=== PATIENT | male | born 1935 | race Caucasian/White ===

== ENCOUNTER 2017-04-09 09:34 | Observation (INO) ==
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
[2017-04-09] MEDS ORDERED: ceFAZolin 1 GM VIAL IV ONE (10:33)
--- NOTE | 2017-04-09 10:44 | XRay Report ---
CLINICAL INFORMATION: History of tibial plateau and mid fibular fracture with possible nonunion infection COMPARISON: None. FINDINGS: Side plate and multiple screws transfix a fracture through the proximal tibial epiphysis. There is no fracture extension into the articular surface of the tibia. There is moderate resorption about the fracture line with only minimal bridging callus posteriorly. There is also an obliquely oriented fracture of the proximal fibula diaphysis with one shaft with bayoneting which is unified. Moderate patellofemoral and mild tibiofemoral degenerative changes noted. Ankle mortise is normal. Moderate diffuse soft tissue swelling noted IMPRESSION: 1. Status post ORIF oblique fracture through the proximal tibial epiphysis which demonstrates nonunion and moderate resorption about the fracture line. Superimposed infection is possible. 2. Malunified fracture of the proximal fibular diaphysis with bayoneting deformity 3. Moderate patellofemoral and mild tibiofemoral degenerative change Interpreted and Authenticated by: Gallo Diana 04/09/17
[2017-04-09 11:07] LABS: Basophils # (Auto) 0 K/mcL (0.0-0.3); Basophils % (Auto) 0.2 % (0.0-2.0); Eosinophils # (Auto) 0.2 K/mcL (0.0-0.7); Eosinophils % (Auto) 2.6 % (0.0-7.0); Granulocytes % (Auto) 75.8 % (38.0-78.0); Lymphocytes % (Auto) 10.7 % (15.5-49.0); Mean Cell Volume 99.5 fL (80.0-100.0); Mean Corpuscular HGB Conc 33.4 g/dL (31.0-36.0); Mean Corpuscular Hemoglobin 33.3 pg (26.0-34.0); Monocytes % (Auto) 10.7 % (1.0-12.0); Platelet Count 290 K/mcL (140-440); RBC 3.21 M/mcL (4.50-5.90); Red Cell Distribution Width 14.6 % (11.5-14.5)
[2017-04-09 11:25] LABS: ALT/SGPT 6 U/l (0-40); Albumin 3.6 gm/dL (3.2-5.2); Albumin/Globulin Ratio 1.1 (1.0-2.3); Alkaline Phosphatase 97 U/L (39-117); Blood Urea Nitrogen 45 mg/dl (8-23)
--- NOTE | 2017-04-09 13:37 | XRay Report ---
CLINICAL INFORMATION: Elevated sedimentation rate COMPARISON: 09/04/2016 FINDINGS: Mild cardiomegaly is unchanged. Mediastinum and pulmonary vessels are normal. There is minor bibasilar scarring, but no infiltrates or effusions. Malunified old bilateral upper rib fractures seen - as before IMPRESSION: No acute disease - stable from 09/04/2016 Interpreted and Authenticated by: Gallo Diana 04/09/17
[2017-04-09 13:44] LABS: Appearance,Urine CLEAR; Bacteria,Urine 0 /hpf (0); Bilirubin,Urine NEG (NEG); Color,Urine STRAW; Glucose,Urine (UA) NEGATIVE (NEG); Leukocyte Esterase,Urine NEG /uL (NEG); Mucus,Urine FEW /hpf (0); Nitrate,Urine NEG (NEG); Protein,Urine NEG (NEG); Urine Blood NEG mg/dL (<0.03); Urine Hyaline Cast 2 /lpf (0-2); Urine RBC < 1 /hpf (0-1); Urine Squamous Epithelial Cell 0 /hpf (0-4); Urine WBC < 1 /hpf (0-4); Urobilinogen,Urine NEG (NEG)
[2017-04-09] MEDS ORDERED: fentaNYL 100 MCG/2 ML VIAL IV ONE ×2 (13:54→18:35)
[2017-04-09] MEDS ORDERED: MIDAZOLAM 2 MG/2 ML VIAL IV ONE ×2 (13:54→18:35)
[2017-04-09] MEDS ORDERED: LIDOCAINE 1% 20 ML VIAL SQ ONE (14:21)
[2017-04-09] MEDS ORDERED: HYDROmorphone 2 MG/ML SYRINGE IV PRN (14:35)
[2017-04-09] MEDS ORDERED: SENNOSIDES 1 TABLET PO PRN (14:35)
[2017-04-09] MEDS ORDERED: ONDANSETRON 4 MG/2 ML VIAL IV PRN (14:35)
[2017-04-09] MEDS ORDERED: VANCOMYCIN PER PHARMACY IV SCH (14:35)
[2017-04-09] MEDS ORDERED: NALOXONE HCL 0.4 MG/ML VIAL IV PRN (14:35)
[2017-04-09] MEDS ORDERED: oxyCODONE HCL 5 MG TABLET PO PRN (14:35)
[2017-04-09] MEDS ORDERED: CALCITRIOL 0.25 MCG CAPSULE PO SCH (14:35)
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
[2017-04-09] MEDS: ACETAMINOPHEN 325 MG TABLET PO PRN ×2 (15:15→19:48)
--- NOTE | 2017-04-09 15:23 | Cat Scan Report ---
CLINICAL INFORMATION: Status post ORIF proximal tibial fracture approximately three months prior. Nonunion. Mild erythema in the subcutaneous soft tissues overlying the fracture site and elevated sedimentation rate. Question osteomyelitis. TECHNIQUE: 0.625 mm helical slices were obtained the distal one fourth of the femur through the mid foot. Following reconstruction, sagittal, coronal axial reformatted were processed and reviewed in soft tissue and bone windows. COMPARISON: None. FINDINGS: There is a T-shaped fracture extending across the proximal tibial metaphysis with a vertical component extending into the central tibial epiphysis through the tibial plateau cortex which shows only minimal incongruity. Sideplate and screws transfix the fracture. The distal fragment is displaced 10 mm in a lateral direction. A small amount of new periosteal bone extends across the posterior medial cortex, but nearly the entire fracture remains nonunified with moderate perifracture osseous resorption. There is no specific radiographic evidence of osteomyelitis (no Betito's abscess sequestrum etc.) Oblique fracture through the proximal fibular diaphysis shows one shaft width overlap. There is healing callus bridging this fracture fragment. Ununited fracture tip of the medial malleolus is incidentally noted. Soft tissue windows show moderate cellulitis throughout the subcutaneous pretibial region extending into the anterior lateral compartment suggesting associated myositis/fasciitis. Small effusion present patellofemoral tibiofemoral joint. Ankle mortise appears unremarkable. IMPRESSION: 1. Status post ORIF T-shaped fracture extending across the proximal tibial metaphysis with a vertical component extending the central tibial epiphysis exiting into the tibial plateau which shows minimal incongruity.. There is only minimal focal new periosteal bone in the posterior medial region. Most of the fracture remains nonunified. No specific radiographic evidence for osteomyelitis. 2. Moderate cellulitis throughout the anterior pretibial region with extension to the anterior and lateral compartments compatible with myositis/fasciitis. 3. Obliquely oriented displaced fracture of the proximal fibular which shows incomplete osseous union Interpreted and Authenticated by: Gallo Diana 04/09/17
[2017-04-09] MEDS: metroNIDAZOLE 500 MG/100 ML BAG IV SCH ×2 (15:36→22:50)
[2017-04-09] MEDS: 0.9 % SODIUM CHLORIDE 10 ML SYRINGE IV SCH ×3 (15:46→22:00)
[2017-04-09] MEDS: CEFEPIME 1 GM VIAL IV SCH (16:46)
[2017-04-09] MEDS ORDERED: VANCOMYCIN 1,500 MG in 0.9 % SODIUM CHLORIDE 500 ML IV ONE (17:00)
--- NOTE | 2017-04-09 19:11 | Cat Scan Report ---
CLINICAL INFORMATION: CT-guided deep bone biopsy for nonhealing comminuted fracture of the proximal tibia. Possible osteomyelitis TECHNIQUE: The procedure and risks including possibility of worsening infection and bleeding were explained the patient. He understood and wished to proceed. He was administered intravenous Versed and fentanyl in divided dosages prior to and during the procedure. Total sedation time 21 minutes. Patient maintained consciousness during the procedure. Pulse ox elevated blood pressure were monitored. Pulse oximetry and blood pressure were monitored The patient supine on the CT table, the oblique fracture line over the proximal tibia was localized in the pretibial region. Skin was marked, prepped and local anesthesia was accomplished to level of fracture with 1% lidocaine using a 25-gauge needle. A 17-gauge guide needle was then placed into the central aspect of the fracture.. Approximately 6 cc of blood was aspirated, but no purulent material. The blood was sent for Gram stain, culture and sensitivity and the needle was removed. Patient tolerated procedure well without apparent complication IMPRESSION: Successful aspiration of sagittal component of the proximal tibial fracture yielding 6 cc of hemorrhagic fluid. No evidence of purulence. Gram stain and culture pending. No apparent complication Interpreted and Authenticated by: Gallo Diana 04/09/17
[2017-04-09] MEDS: TAMSULOSIN 0.4 MG CAPSULE PO SCH (19:47)
[2017-04-09] MEDS: METOPROLOL TARTRATE 50 MG TABLET PO SCH (19:48)
[2017-04-09] MEDS: DOCUSATE SODIUM 100 MG CAPSULE PO SCH (19:48)
[2017-04-09] MEDS: FUROSEMIDE 40 MG TABLET PO SCH (19:50)
[2017-04-09] MEDS: HEPARIN 5,000 UNIT/ML VIAL SQ SCH (19:50)
[2017-04-09] MEDS ORDERED: ATORVASTATIN 20 MG TABLET PO SCH (21:00)
[2017-04-09] MEDS ORDERED: ASCORBIC ACID 500 MG TABLET PO SCH (21:00)
[2017-04-10] MEDS: ACETAMINOPHEN 325 MG TABLET PO PRN (01:39)
[2017-04-10] MEDS: 0.9 % SODIUM CHLORIDE 10 ML SYRINGE IV SCH (05:28)
[2017-04-10] MEDS: metroNIDAZOLE 500 MG/100 ML BAG IV SCH (05:30)
[2017-04-10 05:59] LABS: Basophils # (Auto) 0 K/mcL (0.0-0.3); Basophils % (Auto) 0.1 % (0.0-2.0); Eosinophils # (Auto) 0.4 K/mcL (0.0-0.7); Eosinophils % (Auto) 4.2 % (0.0-7.0); Granulocytes % (Auto) 85.3 % (38.0-78.0); Lymphocytes # (Auto) 0.5 K/mcL (1.5-4.8); Lymphocytes % (Auto) 5.6 % (15.5-49.0); Mean Cell Volume 99.5 fL (80.0-100.0); Mean Corpuscular HGB Conc 33.2 g/dL (31.0-36.0); Monocytes # (Auto) 0.4 K/mcL (0.1-0.9); Monocytes % (Auto) 4.8 % (1.0-12.0); Platelet Count 288 K/mcL (140-440); RBC 2.95 M/mcL (4.50-5.90); Red Cell Distribution Width 13.9 % (11.5-14.5)
[2017-04-10 06:16] LABS: ALT/SGPT < 5 U/l (0-40); Albumin/Globulin Ratio 0.9 (1.0-2.3); Alkaline Phosphatase 85 U/L (39-117); Bilirubin,Direct < 0.2 mg/dL (0.0-0.3); Blood Urea Nitrogen 43 mg/dl (8-23); C-Reactive Protein 20.5 mg/dl (0.0-0.8); Gamma Glutamyl Transpeptidase 14 U/L (8-61); Magnesium 1.9 mg/dL (1.6-2.5); Uric Acid 8.6 mg/dL (2.5-8.0)
[2017-04-10] MEDS ORDERED: FERROUS GLUCONATE 324 MG TABLET PO SCH (08:00)
[2017-04-10] MEDS ORDERED: FOLIC ACID 1 MG TABLET PO SCH (09:00)
[2017-04-10] MEDS ORDERED: ASPIRIN 81 MG TAB.CHEW PO SCH (09:00)
[2017-04-10] MEDS ORDERED: VIT A,C & E/LUTEIN/MINERALS TABLET PO SCH (09:00)
[2017-04-10] MEDS ORDERED: CALCIUM CARBONATE 500 MG TAB.CHEW CHEWED SCH (09:00)
[2017-04-10] MEDS ORDERED: VITAMIN E (DL,TOCOPHERYL ACET) 400 UNIT CAPSULE PO SCH (09:00)
[2017-04-10] MEDS ORDERED: TAMSULOSIN 0.4 MG CAPSULE PO SCH (09:00)
[2017-04-10] MEDS ORDERED: VITAMIN D3 1,000 UNIT TABLET PO SCH (09:00)
[2017-04-10] MEDS ORDERED: FISH OIL 1,000 MG CAPSULE PO SCH (09:00)
[2017-04-10] MEDS: HEPARIN 5,000 UNIT/ML VIAL SQ SCH (09:30)
[2017-04-10] MEDS: FUROSEMIDE 40 MG TABLET PO SCH (09:30)
[2017-04-10] MEDS: CEFEPIME 1 GM VIAL IV SCH (09:31)
[2017-04-10] MEDS: TAMSULOSIN 0.4 MG CAPSULE PO SCH (09:31)
[2017-04-10] MEDS: METOPROLOL TARTRATE 50 MG TABLET PO SCH (09:31)
[2017-04-10] MEDS: DOCUSATE SODIUM 100 MG CAPSULE PO SCH (09:31)
--- NOTE | 2017-04-10 12:38 | Orthopedic Progress Note ---
Subjective Patient information: Note initiated : 04/10/17 at 12:36 pm Service Date, if different from initiated Date: [] Patient: Hunter Munoz 81 y/o M admitted on 04/09/17 for Lt Knee Pain, Swelling /Osteomyelitis, Cellutlitis. Chief Complaint: [] Objective Vital signs: Vital Signs Temp Pulse Pulse Resp BP BP Pulse Ox 04/10/17 11:26 99.0 F H 20 155/74 90 04/10/17 07:26 97.7 F 20 158/83 96 04/10/17 03:59 98.6 F 04/10/17 03:58 97.9 F 83 22 145/70 92 04/09/17 23:36 99.3 F H 04/09/17 23:35 98.6 F 71 22 132/76 93 04/09/17 21:32 98.1 F 04/09/17 21:31 99.5 F H 81 20 157/72 94 04/09/17 19:09 97.9 F 85 22 173/68 92 04/09/17 18:15 98.4 F 86 16 145/59 98 04/09/17 18:10 98.4 F 86 86 16 145/59 154/55 98 04/09/17 18:00 98.4 F 81 16 150/62 99 04/09/17 17:55 98.4 F 86 16 154/66 97 04/09/17 17:50 98.4 F 74 16 148/55 99 04/09/17 17:45 98.4 F 74 16 148/55 99 04/09/17 17:35 98.4 F 86 84 16 155/67 155/67 98 04/09/17 14:20 98.4 F 76 16 156/84 96 04/09/17 14:17 81 18 159/63 92 04/09/17 14:16 83 22 94 04/09/17 14:12 82 24 H 152/77 98 04/09/17 14:02 82 15 152/77 92 04/09/17 13:47 79 19 163/75 93 04/09/17 13:34 84 20 169/78 94 04/09/17 12:58 76 19 90 04/09/17 12:49 73 20 158/73 94 Intake and Output 04/09/17 04/10/17 04/10/17 21:59 05:59 13:59 Intake Total 694 / 694 1300 / 1300 Output Total Balance 693 / 693 1300 / 1300 Intake: IV 100 / 100 100 / 100 Oral 594 / 594 1200 / 1200 Output: # of times incontinent of urine Other: Meal Dinner Percent of Meal Consumed 100% Feeding Ability Independent # Voids 1 1 Weight 259 lb Intake & Output: Intake & Output 04/09/17 04/10/17 04/10/17 21:59 05:59 13:59 Intake Total 694 / 694 1300 / 1300 Output Total Balance 693 / 693 1300 / 1300 Weight 259 lb Intake: IV 100 / 100 100 / 100 Oral 594 / 594 1200 / 1200 Output: # of times incontinent of urine Other: Meal Dinner Percent of Meal Consumed 100% Feeding Ability Independent # Voids 1 1 Incision: Yes clean and dry Weight bearing status: partial Neurological exam IM: Yes neurovascular intact - Labs CBC & BMP: 04/10/17 04:48 04/10/17 04:48 Labs: 04/10/17 04/09/17 04/09/17 04:48 10:25 10:05 Hgb 9.7 L TNP 10.7 L Hct 29.3 L TNP 31.9 L Assessment and Plan (1) Osteomyelitis aspiration by dr Guthrie gram stain neg will dc and await cultures patient will represent if any changes Status: Acute Qualifiers: Osteomyelitis type: unspecified type Osteomyelitis location: tibia Laterality: left Qualified Code(s): M86.9 - Osteomyelitis, unspecified
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
== END 2017-04-10 14:45 | disposition home or self-care (01) ==
LOC: MEDSUR 09:34 → ED 09:34 → MEDSUR 14:12
PROVIDERS: ADMIT Internal Medicine; ATTEND Internal Medicine

== ENCOUNTER 2022-04-19 04:06 | Inpatient (IN) ==
[2022-04-19 04:19] LABS: POC Calcium, Ionized 1.16 (1.16-1.32); POC Creatinine 4.8 (0.6-1.2)
[2022-04-19] MEDS ORDERED: FUROSEMIDE 100 MG/10 ML VIAL IV ONE (04:22)
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
--- NOTE | 2022-04-19 05:08 | XRay Report ---
INDICATION: sob TECHNIQUE: AP portable semiupright chest x-ray COMPARISON: Previous examinations dated 06/11/2019, 04/09/2017, 09/04/2016 FINDINGS: There is cardiomegaly. There are bilateral infiltrates with bibasilar predominance appearance is consistent with congestive heart failure. Bibasilar pneumonia is possible. Clinical correlation and follow-up radiographs are recommended. There is been interval worsening since previous examination IMPRESSION: [1 cardiomegaly and bilateral infiltrates consistent with congestive heart failure Interval worsening since 06/11/2019 Interpreted and Authenticated by: Gallo Webster 04/19/22
[2022-04-19 05:29] LABS: Basophils # (Auto) 0.06 K/mcL (0.00-0.30); Basophils % (Auto) 0.9 % (0.0-2.0); Eosinophils # (Auto) 0.11 K/mcL (0.00-0.70); Eosinophils % (Auto) 1.7 % (0.0-7.0); Hematocrit 31.8 % (40.1-51.0); Hemoglobin 9.5 g/dL (13.7-17.5); Lymphocytes # (Auto) 0.96 K/mcL (1.50-4.80); Lymphocytes % (Auto) 14.5 % (15.5-49.0); Mean Cell Volume 105.6 fL (80.0-100.0); Mean Corpuscular HGB Conc 29.9 g/dL (31.0-36.0); Mean Platelet Volume 9.1 fL (8.8-12.5); Monocytes # (Auto) 0.78 K/mcL (0.10-0.90); Monocytes % (Auto) 11.8 % (1.0-12.0); Neutrophils % (Auto) 70.3 % (38.0-78.0); Platelet Count 242 K/mcL (140-440); RBC 3.01 M/mcL (4.63-6.08); WBC 6.6 K/mcL (4.5-11.0)
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
[2022-04-19] MEDS ORDERED: RIVAROXABAN 15 MG TABLET PO SCH (16:00)
--- OUTSIDE RECORDS SUMMARY | 2022-04-19 16:11 | External Medical Summary | Continuity of Care Document ---
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 Lab: SHE Pimentel [address] [facility] STACE[address] S[facility] [address] Performing Lab: SHE Pimentel [address] RIVE [place] [facility] [address] URINALYS EPITHELIAL <1 0 - 4 03/22 Specimen Typ e: URINE LEW[place]ON IS CELLS.SQUA No comment en tered. [facility]) MOUS Ordering Provid er: FRANCESCO GARDUNO [PRESENCE] Report Relea sed Date/Time: Mar 16, 2021 10:12 PM IN URINE Reporting Lab: SHE Pimentel [facility] SEDIMENT [address] [facility] SON[facility] [address] BY LIGHT Performing Lab : SHE Pimentel [facility] MICROSCOPY [facility]INWRCAMP[facility]LL[facility] SONYA [facility] [address] URINALYS HEMOGLOBIN NEGATIVE 03/22 Specimen Ty pe: URINE LEWISTON IS [PRESENCE] No comment en tered. [facility] ([facility]) IN URINE Ordering Provi kailey: FRANCESCO GARDUNO BY TEST Report Released Date/Time: Mar 16, 2021 10:12 PM STRIP Reporting Lab: SHE Pimentel [address] [place] [facility] [address] Performing Lab: SHE Pimentel [address] [place] [facility] [address] URINALYS NITRITE NEGATIVE 03/22 Specimen Type: URINE LEWISTON IS [PRESENCE] No comment en tered. [facility] ([facility]) IN URINE Ordering Provi kailey: FRANCESCO GARDUNO BY TEST Report Released Date/Time: Mar 16, 2021 10:12 PM STRIP Reporting Lab: SHE Pimentel [address] [place] [address] Performing Lab: SHE Pimentel [address] [place] [facility] [address] URINALYS LEUKOCYTE NEGATIVE 03/22 Specimen Typ e: URINE LEWISTON IS No comment ente red. [facility] ([facility]) [PRESENCE] Ordering Pro vider: FRANCESCO GARDUNO IN URINE Report Release d Date/Time: Mar 16, 2021 10:12 PM BY TEST Reporting Lab: SHE Pimentel [address] [place] [facility] [address] Performing Lab: SHE Pimentel [address] STACEYE S[facility] [address] URINALYS UROBILINOG NORMAL <2 - 2 03/22 Specimen Typ e: URINE LEW[place] IS No comment enter ed. [facility] ([facility]) [MASS/VOLU Ordering Pro vider: FRANCESCO GARDUNO ME] IN Report Released Date/Time: Mar 16, 2021 10:12 PM URINE BY Reporting Lab: SHE Pimentel [facility] TEST STRIP [address] [place] [address] Performing Lab: SHE Pimentel [facility] [address] [place] [address] COMPREHE GLUCOSE 102 71 - 109 03/22 Specimen Type: SERUM LEWISTON NSIVE [MASS/VOLU /2020 Comment: Hig h doses of Biotin supplements (>5 mg/day) may falsely increase Vitamin B-12, Vitamin D (25OH), Free T4, and Folate results. Test specimens should be collected at least 8 hrs after [facility] METABOLI [place]] IN st ingestion of high dose biotin. High doses of Biotin supplements (>5 mg/day) may falsely decrease Total PSA, Free PSA, Pro-BNP, AFP, C-Peptide and Ferritin results. Test specimens should be col C PANEL SERUM OR lected at least 8 hours after the last ingestion of high dose biotin. CAUTION REGARDING BNP, NT-PRO: This is an N-Terminal ProBNP assay. While hvf-I-Dupfxebn BNP assays have roughly the same predictive PLASMA power for access ing heart failure, reference ranges are different and results obtained between the two assays cannot be used interchangeably. LDL Direct Adult Reference Range: Optimal <100 mg/dL Near optimal/abo ve optimal 100-129 mg/dL Borderline high 130-159 mg/dL High 160-189 mg/dL Very High 190 mg/dL Note that non-fasting results may be slightly lower than fasting results. Ordering Provid er: FRANCESCO GARDUNO Report Released Date/Time: Mar 16, 2021 10:12 PM Reporting Lab: SHE TanikaAddie [facility] [address] [place] [address] Performing Lab: SHE Pimentel [place] [address] [place] [address] COMPREHE UREA 46 7 - 23 03/22 H Specimen Type: SERUM LEWISTON NSIVE NITROGEN /2020 Comment: High doses of Biotin supplements (>5 mg/day) may falsely increase Vitamin B-12, Vitamin D (25OH), Free T4, and Folate results. Test specimens should be collected at least 8 hrs after [facility] METABOLI [MASS/VOLU st ingestion of high dose biotin. High doses of Biotin supplements (>5 mg/day) may falsely decrease Total PSA, Free PSA, Pro-BNP, AFP, C-Peptide and Ferritin results. Test specimens should be col C PANEL ME] IN lected at least 8 hours after the last ingestion of high dose biotin. CAUTION REGARDING BNP, NT-PRO: This is an N-Terminal ProBNP assay. While wcz-V-Glzkcptt BNP assays have roughly the same predictive SERUM OR power for acces sing heart failure, reference ranges are different and results obtained between the two assays cannot be used interchangeably. LDL Direct Adult Reference Range: Optimal <100 mg/dL PLASMA Near optimal/abo ve optimal 100-129 mg/dL Borderline high 130-159 mg/dL High 160-189 mg/dL Very High 190 mg/dL Note that non-fasting results may be slightly lower than fasting results. Ordering Provid er: FRANCESCO GARDUNO Report Released Date/Time: Mar 16, 2021 10:12 PM Reporting Lab: SHE [address] [place] [facility] [address] Performing Lab: SHE Pimentel [address] [place] [facility] [address] COMPREHE CREATININE 2.6 .7 - 1.2 11/03 H Specimen Ty pe: SERUM LEWISTON NSIVE [MASS/VOLU /2020 Comment: Hig h doses of Biotin supplements (>5 mg/day) may falsely increase Vitamin B-12, Vitamin D (25OH), Free T4, and Folate results. Test specimens should be collected at least 8 hrs after [facility] METABOLI ME] IN st ingestion of high dose biotin. High doses of Biotin supplements (>5 mg/day) may falsely decrease Total PSA, Free PSA, Pro-BNP, AFP, C-Peptide and Ferritin results. Test specimens should be col C PANEL SERUM OR lected at least 8 hours after the last ingestion of high dose biotin. CAUTION REGARDING BNP, NT-PRO: This is an N-Terminal ProBNP assay. While egg-I-Piwvfhvc BNP assays have roughly the same predictive PLASMA power for access ing heart failure, reference ranges are different and results obtained between the two assays cannot be used interchangeably. LDL Direct Adult Reference Range: Optimal <100 mg/dL Near optimal/abo ve optimal 100-129 mg/dL Borderline high 130-159 mg/dL High 160-189 mg/dL Very High 190 mg/dL Note that non-fasting results may be slightly lower than fasting results. Ordering Provid er: FRANCESCO GARDUNO Report Released Date/Time: Mar 16, 2021 10:12 PM Reporting Lab: SHE Pimentel [place] [address] [place] [address] Performing Lab: SHE Pimentel [place] [address] [place] [address] COMPREHE SODIUM 148 131 - 142 11 H Specimen Type : SERUM LEWISTON NSIVE [MOLES/VOL /2020 Comment: Hig h doses of Biotin supplements (>5 mg/day) may falsely increase Vitamin B-12, Vitamin D (25OH), Free T4, and Folate results. Test specimens should be collected at least 8 hrs after [facility] METABOLI UME] IN st ingestion of high dose biotin. High doses of Biotin supplements (>5 mg/day) may falsely decrease Total PSA, Free PSA, Pro-BNP, AFP, C-Peptide and Ferritin results. Test specimens should be col C PANEL SERUM OR lected at least 8 hours after the last ingestion of high dose biotin. CAUTION REGARDING BNP, NT-PRO: This is an N-Terminal ProBNP assay. While bkn-F-Mgbynzha BNP assays have roughly the same predictive PLASMA power for access ing heart failure, reference ranges are different and results obtained between the two assays cannot be used interchangeably. LDL Direct Adult Reference Range: Optimal <100 mg/dL Near optimal/abo ve optimal 100-129 mg/dL Borderline high 130-159 mg/dL High 160-189 mg/dL Very High 190 mg/dL Note that non-fasting results may be slightly lower than fasting results. Ordering Provid er: FRANCESCO GARDUNO Report Released Date/Time: Mar 16, 2021 10:12 PM Reporting Lab: SHE TanikaAddie [place] [address] [place] [address] Performing Lab: SHE Pimentel [address] [place] [address] COMPREHE POTASSIUM 4.8 3.6 - 5.4 03/22 Specimen Ty pe: SERUM LEWISTON NSIVE [MOLE/VOL Comment: Hig h doses of Biotin supplements (>5 mg/day) may falsely increase Vitamin B-12, Vitamin D (25OH), Free T4, and Folate results. Test specimens should be collected at least 8 hrs after [facility] UME] IN st ingestion of high dose biotin. High doses of Biotin supplements (>5 mg/day) may falsely decrease Total PSA, Free PSA, Pro-BNP, AFP, C-Peptide and Ferritin results. Test specimens should be col C PANEL SERUM OR lected at least 8 hours after the last ingestion of high dose biotin. CAUTION REGARDING BNP, NT-PRO: This is an N-Terminal ProBNP assay. While dfd-V-Irscuqfx BNP assays have roughly the same predictive PLASMA power for access ing heart failure, reference ranges are different and results obtained between the two assays cannot be used interchangeably. LDL Direct Adult Reference Range: Optimal <100 mg/dL Near optimal/abo ve optimal 100-129 mg/dL Borderline high 130-159 mg/dL High 160-189 mg/dL Very High 190 mg/dL Note that non-fasting results may be slightly lower than fasting results. Ordering Provid er: FRANCESCO GARDUNO Report Released Date/Time: Mar 16, 2021 10:12 PM Reporting Lab: SHE Pimentel [address] [place] [address] Performing Lab: SHE Pimentel [address] [place] [address] COMPREHE CHLORIDE 111 95 - 108 03/22 H Specimen Type : SERUM LEWISTON NSIVE [MOLES/VOL /2020 Comment: Hig h doses of Biotin supplements (>5 mg/day) may falsely increase Vitamin B-12, Vitamin D (25OH), Free T4, and Folate results. Test [facility] IN st ingestion of high dose biotin. High doses of Biotin supplements (>5 mg/day) may falsely decrease Total PSA, Free PSA, Pro-BNP, AFP, C-Peptide and Ferritin results. Test specimens should be col C PANEL SERUM OR lected at least 8 hours after the last ingestion of high dose biotin. CAUTION REGARDING BNP, NT-PRO: This is an N-Terminal ProBNP assay. While zdu-V-Xzebedgg BNP assays have roughly the same predictive PLASMA power for access ing heart failure, reference ranges are different and results obtained between the two assays cannot be used interchangeably. LDL Direct Adult Reference Range: Optimal <100 mg/dL Near optimal/abo ve optimal 100-129 mg/dL Borderline high 130-159 mg/dL High 160-189 mg/dL Very High 190 mg/dL Note that non-fasting results may be slightly lower than fasting results. Ordering Provid er: FRANCESCO GARDUNO Report Released Date/Time: Mar 16, 2021 10:12 PM Reporting Lab: SHE DESIR [address] [place] [employer] CorporationA [facility]KA[facility] [address] Performing Lab: SHE DESIR [address] [place] [address] COMPREHE CARBON 25 21 - 32 03/22 Specimen Type: SERUM LEWIST[place] NSIVE DIOXIDE, /2020 Comment: High doses of Biotin supplements (>5 mg/day) may falsely increase Vitamin B-12, Vitamin D (25OH), Free T4, and Folate results. Test specimens should be collected at least 8 hrs after [facility] METABOLI TOTAL st ingestion of high dose biotin. High doses of Biotin supplements (>5 mg/day) may falsely decrease Total PSA, Free PSA, Pro-BNP, AFP, C-Peptide and Ferritin results. Test specimens should be col C PANEL [MOLES/VOL lected at [facility] st 8 hours after the last ingestion of high dose biotin. CAUTION REGARDING BNP, NT-PRO: This is an N-Terminal ProBNP assay. While diw-D-Kdswpwwy BNP assays have roughly the same predictive UME] IN power for access ing heart failure, reference ranges are different and results obtained between the two assays cannot be used interchangeably. LDL Direct Adult Reference Range: Optimal <100 mg/dL SERUM OR Near optimal/ab ove optimal 100-129 mg/dL Borderline high 130-159 mg/dL High 160-189 mg/dL Very High 190 mg/dL Note that non-fasting results may be slightly lower than fasting results. PLASMA Ordering Provid er: FRANCESCO GARDUNO Report Released Date/Time: Mar 16, 2021 10:12 PM Reporting Lab: SHE Pimentel [place] [address] [place] [address] Performing Lab: SHE Pimentel [place] [address] [place] [address] COMPREHE CALCIUM 8.8 8.4 - 10.5 03/22 Specimen Typ e: SERUM LEWISTON NSIVE [MASS/VOLU /2020 Comment: Hig h doses of Biotin supplements (>5 mg/day) may falsely increase Vitamin B-12, Vitamin D (25OH), Free T4, and Folate results. Test specimens should be collected at least 8 hrs after [facility] METABOLI ME] IN st ingestion of high dose biotin. High doses of Biotin supplements (>5 mg/day) may falsely decrease Total PSA, Free PSA, Pro-BNP, AFP, C-Peptide and Ferritin results. Test specimens should be col C PANEL SERUM OR lected at least 8 hours after the last ingestion of high dose biotin. CAUTION REGARDING BNP, NT-PRO: This is an N-Terminal ProBNP assay. While spl-D-Nmttvnha BNP assays have roughly the same predictive PLASMA power for access ing heart failure, reference ranges are different and results obtained between the two assays cannot be used interchangeably. LDL Direct Adult Reference Range: Optimal <100 mg/dL Near optimal/abo ve optimal 100-129 mg/dL Borderline high 130-159 mg/dL High 160-189 mg/dL Very High 190 mg/dL Note that non-fasting results may be slightly lower than fasting results. Ordering Provid er: FRANCESCO GARDUNO Report Released Date/Time: Mar 16, 2021 10:12 PM Reporting Lab: SHE Pimentel [address] [place] [address] Performing Lab: SHE TanikaAddie [place] [address] [place] [address] COMPREHE PROTEIN 6.4 5.8 - 7.9 03/22 Specimen Type : SERUM LEWIST[place] NSIVE [MASS/VOLU /2020 Comment: Hig h doses of Biotin supplements (>5 mg/day) may falsely increase Vitamin B-12, Vitamin D (25OH), Free T4, and Folate results. Test specimens should be collected at least 8 hrs after [facility]] IN ingestion of high dose biotin. High doses of Biotin supplements (>5 mg/day) may falsely decrease Total PSA, Free PSA, Pro-BNP, AFP, C-Peptide and Ferritin results. Test specimens should be col C PANEL SERUM OR lected at least 8 hours after the last ingestion of high dose biotin. CAUTION REGARDING BNP, NT-PRO: This is an N-Terminal ProBNP assay. While mvi-L-Qtnqgjqs BNP assays have roughly the same predictive PLASMA power for access ing heart failure, reference ranges are different and results obtained between the two assays cannot be used interchangeably. LDL Direct Adult Reference Range: Optimal <100 mg/dL Near optimal/abo ve optimal 100-129 mg/dL Borderline high 130-159 mg/dL High 160-189 mg/dL Very High 190 mg/dL Note that non-fasting results may be slightly lower than fasting results. Ordering Provid er: FRANCESCO GARDUNO Report Released Date/Time: Mar 16, 2021 10:12 PM Reporting Lab: SHE [address] [place] [facility] [address] Performing Lab: SHE Pimentel [address] STACEYE [facility] [facility] [address] COMPREHE ALBUMIN 4.0 3.8 - 5.2 03/22 Specimen Type : SERUM LEWIST[place] NSIVE [MASS/VOLU /2020 Comment: Hig h doses of Biotin supplements (>5 mg/day) may falsely increase Vitamin B-12, Vitamin D (25OH), Free T4, and Folate results. Test specimens should be collected at least 8 hrs after [facility]] IN ingestion of high dose biotin. High doses of Biotin supplements (>5 mg/day) may falsely decrease Total PSA, Free PSA, Pro-BNP, AFP, C-Peptide and Ferritin results. Test specimens should be col C PANEL SERUM OR lected at least 8 hours after the last ingestion of high dose biotin. CAUTION REGARDING BNP, NT-PRO: This is an N-Terminal ProBNP assay. While hlv-X-Biaknrjp BNP assays have roughly the same predictive PLASMA power for access ing heart failure, reference ranges are different and results obtained between the two assays cannot be used interchangeably. LDL Direct Adult Reference Range: Optimal <100 mg/dL Near optimal/abo ve optimal 100-129 mg/dL Borderline high 130-159 mg/dL High 160-189 mg/dL Very High 190 mg/dL Note that non-fasting results may be slightly lower than fasting results. Ordering Provid er: FRANCESCO GARDUNO Report Released Date/Time: Mar 16, 2021 10:12 PM Reporting Lab: SHE TanikaAddie [address] [place] [address] Performing Lab: SHE TanikaAddie [address] [place] [address] COMPREHE GLOBULIN 2.4 1.5 - 3.2 03/22 Specimen Typ e: SERUM LEWISTON NSIVE [MASS/VOLU /2020 Comment: Hig h doses of Biotin supplements (>5 mg/day) may falsely increase Vitamin B-12, Vitamin D (25OH), Free T4, and Folate results. Test specimens should be collected at least 8 hrs after [facility] METABOLI ME] IN st ingestion of high dose biotin. High doses of Biotin supplements (>5 mg/day) may falsely decrease Total PSA, Free PSA, Pro-BNP, AFP, C-Peptide and Ferritin results. Test specimens should be col C PANEL SERUM lected at least 8 hours after the last ingestion of high dose biotin. CAUTION REGARDING BNP, NT-PRO: This is an N-Terminal ProBNP assay. While fiy-Q-Xmhsehri BNP assays have roughly the same predictive power for access ing heart failure, reference ranges are different and results obtained between the two assays cannot be used interchangeably. LDL Direct Adult Reference Range: Optimal <100 mg/dL Near optimal/abo ve optimal 100-129 mg/dL Borderline high 130-159 mg/dL High 160-189 mg/dL Very High 190 mg/dL Note that non-fasting results may be slightly lower than fasting results. Ordering Provid er: FRANCESCO GARDUNO Report Released Date/Time: Mar 16, 2021 10:12 PM Reporting Lab: SHE TanikaAddie [address] [place] [address] Performing Lab: SHE Pimentel [address] [place] [address] COMPREHE ASPARTATE 13 14 - 44 03/22 L Specimen Type : SERUM LEWISTON NSIVE AMINOTRANS Comment: Hig h doses of Biotin supplements (>5 mg/day) may falsely increase Vitamin B-12, Vitamin D (25OH), Free T4, and Folate results. Test specimens should be collected at least 8 hrs after [facility] FERASE st ingestion of high dose biotin. High doses of Biotin supplements (>5 mg/day) may falsely decrease Total PSA, Free PSA, Pro-BNP, AFP, C-Peptide and Ferritin results. Test specimens should be col C PANEL [ENZYMATIC lected at [facility] st 8 hours after the last ingestion of high dose biotin. CAUTION REGARDING BNP, NT-PRO: This is an N-Terminal ProBNP assay. While qnf-W-Mdcebnwr BNP assays have roughly the same predictive ACTIVITY/V power for acc essing heart failure, reference ranges are different and results obtained between the two assays cannot be used interchangeably. LDL Direct Adult Reference Range: Optimal <100 mg/dL OLUME] IN Near optimal/a vidal optimal 100-129 mg/dL Borderline high 130-159 mg/dL High 160-189 mg/dL Very High 190 mg/dL Note that non-fasting results may be slightly lower than fasting results. SERUM OR Ordering Provi kailey: FRANCESCO GARDUNO PLASMA Report Released Date/Time: Mar 16, 2021 10:12 PM Reporting Lab: SHE Pimentel [address] [place] [facility] [address] Performing Lab: SHE Pimentel [address] [place] [address] COMPREHE ALANINE <10 9 - 57 03/22 Specimen Type: SERUM DAVID NSIVE AMINOTRANS Comment: Hig h doses of Biotin supplements (>5 mg/day) may falsely increase Vitamin B-12, Vitamin D (25OH), Free T4, and Folate results. Test specimens should be collected at least 8 hrs after [facility] FERASE st ingestion of high dose biotin. High doses of Biotin supplements (>5 mg/day) may falsely decrease Total PSA, Free PSA, Pro-BNP, AFP, C-Peptide and Ferritin results. Test specimens should be col C PANEL [ENZYMATIC lected at [facility]i st 8 hours after the last ingestion of high dose biotin. CAUTION REGARDING BNP, NT-PRO: This is an N-Terminal ProBNP assay. While zji-R-Pobagvvi BNP assays have roughly the same predictive ACTIVITY/V power for acc essing heart failure, reference ranges are different and results obtained between the two assays cannot be used interchangeably. LDL Direct Adult Reference Range: Optimal <100 mg/dL OLUME] IN Near optimal/a vidal optimal 100-129 mg/dL Borderline high 130-159 mg/dL High 160-189 mg/dL Very High 190 mg/dL Note that non-fasting results may be slightly lower than fasting results. SERUM OR Ordering Provi kailey: FRANCESCO GARDUNO PLASMA Report Released Date/Time: Mar 16, 2021 10:12 PM Reporting Lab: SHE Pimentel [address] [place] [address] Performing Lab: SHE Pimentel [address] [place] [address] COMPREHE ALKALINE 130 45 - 129 11/03 H Specimen Type : SERUM [place] NSIVE PHOSPHATAS /2020 Comment: Hig h doses of Biotin supplements (>5 mg/day) may falsely increase Vitamin B-12, Vitamin D (25OH), Free T4, and Folate results. Test specimens should be collected at least 8 hrs after [facility] METABOLI E st ingestion of high dose biotin. High doses of Biotin supplements (>5 mg/day) may falsely decrease Total PSA, Free PSA, Pro-BNP, AFP, C-Peptide and Ferritin results. Test specimens should be col C PANEL [ENZYMATIC lected at nani [facility] 8 hours after the last ingestion of high dose biotin. CAUTION REGARDING BNP, NT-PRO: This is an N-Terminal ProBNP assay. While edx-W-Wombhjje BNP assays have roughly the same predictive ACTIVITY/V power for acc essing heart failure, reference ranges are different and results obtained between the two assays cannot be used interchangeably. LDL Direct Adult Reference Range: Optimal <100 mg/dL OLUME] IN Near optimal/a vidal optimal 100-129 mg/dL Borderline high 130-159 mg/dL High 160-189 mg/dL Very High 190 mg/dL Note that non-fasting results may be slightly lower than fasting results. SERUM OR Ordering Provi kailey: FRANCESCO GARDUNO PLASMA Report Released Date/Time: Mar 16, 2021 10:12 PM Reporting Lab: SHE Pimentel [place] [address] [place] [address] Performing Lab: SHE Loren [address] [place] [address] COMPREHE BILIRUBIN. 0.2 0.2 - 1.3 03/22 Specimen T ype: SERUM [place] NSIVE TOTAL /2020 Comment: High d oses of Biotin supplements (>5 mg/day) may falsely increase Vitamin B-12, Vitamin D (25OH), Free T4, and Folate results. Test specimens should be collected at least 8 hrs after [facility] METABOLI [MASS/VOLU st ingestion of high dose biotin. High doses of Biotin supplements (>5 mg/day) may falsely decrease Total PSA, Free PSA, Pro-BNP, AFP, C-Peptide and Ferritin results. Test specimens should be col C PANEL ME] IN lected at least 8 hours after the last ingestion of high dose biotin. CAUTION REGARDING BNP, NT-PRO: This is an N-Terminal ProBNP assay. While rxb-T-Xvizjypf BNP assays have roughly the same predictive SERUM OR power for acces sing heart failure, reference ranges are different and results obtained between the two assays cannot be used interchangeably. LDL Direct Adult Reference Range: Optimal <100 mg/dL PLASMA Near optimal/abo ve optimal 100-129 mg/dL Borderline high 130-159 mg/dL High 160-189 mg/dL Very High 190 mg/dL Note that non-fasting results may be slightly lower than fasting results. Ordering Provid er: FRANCESCO GARDUNO Report Released Date/Time: Mar 16, 2021 10:12 PM Reporting Lab: SHE Pimentel [address] [place] [address] Performing Lab: SHE TanikaAddie [address] [place] [address] COMPREHE GLOMERULAR 23.7 60 03/22 L Specimen Typ e: SERUM [place] NSIVE FILTRATION /2020 Comment: Hig h doses of Biotin supplements (>5 mg/day) may falsely increase Vitamin B-12, Vitamin D (25OH), Free T4, and Folate results. Test specimens should be collected at least 8 hrs after [facility] METABOLI RATE/1.73 st ingestion of high dose biotin. High doses of Biotin supplements (>5 mg/day) may falsely decrease Total PSA, Free PSA, Pro-BNP, AFP, C-Peptide and Ferritin results. Test specimens should be col C PANEL SQ lected at least 8 hours after the last ingestion of high dose biotin. CAUTION REGARDING BNP, NT-PRO: This is an N-Terminal ProBNP assay. While rng-V-Dizfazcf BNP assays have roughly the same predictive M.PREDICTE power for acc essing heart failure, reference ranges are different and results obtained between the two assays cannot be used interchangeably. LDL Direct Adult Reference Range: Optimal <100 mg/dL D [VOLUME Near optimal/a vidal optimal 100-129 mg/dL Borderline high 130-159 mg/dL High 160-189 mg/dL Very High 190 mg/dL Note that non-fasting results may be slightly lower than fasting results. RATE/AREA] Ordering Pro vider: FRANCESCO GARDUNO IN SERUM Report Release d Date/Time: Mar 16, 2021 10:12 PM OR PLASMA Reporting Lab : SHE Pimentel [facility] BY [address] [place] [address] CREATININE Performing L ab: SHE Pimentel [facility] [address] [place] [phone] FORMULA (MDRD) COMPREHE ANION GAP 17 7 - 21 03/22 Specimen Type : SERUM [place] NSIVE 4 IN SERUM /2020 Comment: Hig h doses of Biotin supplements (>5 mg/day) may falsely increase Vitamin B-12, Vitamin D (25OH), Free T4, and Folate results. Test specimens should be collected at least 8 hrs after [facility] METABOLI OR PLASMA st ingestion of high dose biotin. High doses of Biotin supplements (>5 mg/day) may falsely decrease Total PSA, Free PSA, Pro-BNP, AFP, C-Peptide and Ferritin results. Test specimens should be col C PANEL lected at least 8 hours after the last ingestion of high dose biotin. CAUTION REGARDING BNP, NT-PRO: This is an N-Terminal ProBNP assay. While ina-E-Omgfyqsj BNP assays have roughly the same predictive power for access ing heart failure, reference ranges are different and results obtained between the two assays cannot be used interchangeably. LDL Direct Adult Reference Range: Optimal <100 mg/dL Near optimal/abo ve optimal 100-129 mg/dL Borderline high 130-159 mg/dL High 160-189 mg/dL Very High 190 mg/dL Note that non-fasting results may be slightly lower than fasting results. Ordering Provid er: FRANCESCO GARDUNO Report Released Date/Time: Mar 16, 2021 10:12 PM Reporting Lab: SHE [address] [facility] [address] Performing Lab: SHE FR[address] [place] [address] COMPREHE GLOMERULAR 22 90 11/03 L Specimen Typ e: SERUM [place] NSIVE Comment: Hig h doses of Biotin supplements (>5 mg/day) may falsely increase Vitamin B-12, Vitamin D (25OH), Free T4, and Folate results. Test specimens should be collected at least 8 hrs after [facility] METABOLI RATE/1.73 st ingestion of high dose biotin. High doses of Biotin supplements (>5 mg/day) may falsely decrease Total PSA, Free PSA, Pro-BNP, AFP, C-Peptide and Ferritin results. Test specimens should be col C PANEL SQ lected at least 8 hours after the last ingestion of high dose biotin. CAUTION REGARDING BNP, NT-PRO: This is an N-Terminal ProBNP assay. While cho-R-Hafpgodb BNP assays have roughly the same predictive M.PREDICTE power for acc essing heart failure, reference ranges are different and results obtained between the two assays cannot be used interchangeably. LDL Direct Adult Reference Range: Optimal <100 mg/dL D [VOLUME Near optimal/a vidal optimal 100-129 mg/dL Borderline high 130-159 mg/dL High 160-189 mg/dL Very High 190 mg/dL Note that non-fasting results may be slightly lower than fasting results. RATE/AREA] Ordering Pro vider: FRANCESCO GARDUNO IN SERUM, Report Releas ed Date/Time: Mar 16, 2021 10:12 PM PLASMA OR Reporting Lab : SHE [facility] BY [address] [place] [address] CREATININE Performing L ab: SHE Pimentel [facility] [address] [place] [address] [place] [address] FORMULA (CKD-EPI) THYROID THYROTROPI 1.22 0.300 - 03/22 Specimen Type : SERUM [place] STIMULAT N 4.25 Comment: High doses of Biotin supplements (>5 mg/day) may falsely increase Vitamin B-12, Vitamin D (25OH), Free T4, and Folate results. Test specimens should be collected at least 8 hrs after [facility] CLINIC ING [UNITS/VOL st ingestion of high dose biotin. High doses of Biotin supplements (>5 mg/day) may falsely decrease Total PSA, Free PSA, Pro-BNP, AFP, C-Peptide and Ferritin results. Test specimens should be col HORMONE UME] IN lected at least 8 hours after the last ingestion of high dose biotin. CAUTION REGARDING BNP, NT-PRO: This is an N-Terminal ProBNP assay. While bew-L-Gfbltbox BNP assays have roughly the same predictive SERUM OR power for acces sing heart failure, reference ranges are different and results obtained between the two assays cannot be used interchangeably. LDL Direct Adult Reference Range: Optimal <100 mg/dL PLASMA Near optimal/abo ve optimal 100-129 mg/dL Borderline high 130-159 mg/dL High 160-189 mg/dL Very High 190 mg/dL Note that non-fasting results may be slightly lower than fasting results. Ordering Provid er: FRANCESCO GARDUNO Report Released Date/Time: Mar 16, 2021 10:12 PM Reporting Lab: SHE Pimentel [address] [place] [address] Performing Lab: SHE Pimentel [address] [facility] [address] VITAMIN COBALAMIN 320 232 - 1245 03/22 Specimen Ty pe: SERUM [place] B-12 (VITAMIN /2020 Comment: High doses of Biotin supplements (>5 mg/day) may falsely increase Vitamin B-12, Vitamin D (25OH), Free T4, and Folate results. Test specimens should be collected at least 8 hrs after last ingestion of high dose biotin. [facility] B12) Ordering Provid er: FRANCESCO GARDUNO [MASS/VOLU Report Relea sed Date/Time: Mar 16, 2021 10:12 PM ME] IN Reporting Lab: SHE TanikaAddie [facility] SERUM OR [address] [place] [address] PLASMA Performing Lab: SHE Loren [place] [address] [place] [address] LIPID CHOLESTERO 144 <199 - 199 03/22 Specimen T ype: SERUM [place] PANEL L Comment: High d oses of Biotin supplements (>5 mg/day) may falsely increase Vitamin B-12, Vitamin D (25OH), Free T4, and Folate results. Test specimens should be collected at least 8 hrs after [facility] [place] [facility] [MASS/VOLU st ingestion of high dose biotin. High doses of Biotin supplements (>5 mg/day) may falsely decrease Total PSA, Free PSA, Pro-BNP, AFP, C-Peptide and Ferritin results. Test specimens should be col ME] IN lected at least 8 hours after the last ingestion of high dose biotin. CAUTION REGARDING BNP, NT-PRO: This is an N-Terminal ProBNP assay. While cao-U-Elfxehut BNP assays have roughly the same predictive SERUM OR power for acces sing heart failure, reference ranges are different and results obtained between the two assays cannot be used interchangeably. LDL Direct Adult Reference Range: Optimal <100 mg/dL PLASMA Near optimal/abo ve optimal 100-129 mg/dL Borderline high 130-159 mg/dL High 160-189 mg/dL Very High 190 mg/dL Note that non-fasting results may be slightly lower than fasting results. Ordering Provid er: FRANCESCO GARDUNO Report Released Date/Time: Mar 16, 2021 10:12 PM Reporting Lab: SHE TanikaAddie [address] [place] [address] Performing Lab: SHE TanikaAddie [place] [address] [place] [address] LIPID TRIGLYCERI 96 <149 - 149 03/22 Specimen T ype: SERUM [place] PANEL DE Comment: High d oses of Biotin supplements (>5 mg/day) may falsely increase Vitamin B-12, Vitamin D (25OH), Free T4, and Folate results. Test specimens should be collected at least 8 hrs after [place] [facility] [MASS/VOLU st ingestion of high dose biotin. High doses of Biotin supplements (>5 mg/day) may falsely decrease Total PSA, Free PSA, Pro-BNP, AFP, C-Peptide and Ferritin results. Test specimens should be col ME] IN lected at least 8 hours after the last ingestion of high dose biotin. CAUTION REGARDING BNP, NT-PRO: This is an N-Terminal ProBNP assay. While hwg-Z-Lvyxwjyz BNP assays have roughly the same predictive SERUM OR power for acces sing heart failure, reference ranges are different and results obtained between the two assays cannot be used interchangeably. LDL Direct Adult Reference Range: Optimal <100 mg/dL PLASMA Near optimal/abo ve optimal 100-129 mg/dL Borderline high 130-159 mg/dL High 160-189 mg/dL Very High 190 mg/dL Note that non-fasting results may be slightly lower than fasting results. Ordering Provid er: FRANCESCO GARDUNO Report Released Date/Time: Mar 16, 2021 10:12 PM Reporting Lab: SHE [address] [place] [facility] [address] Performing Lab: SHE Pimentel [address] [place] [facility] [address] LIPID CHOLESTERO 49 40 03/22 Specimen Type : SERUM [place] PANEL L IN /2020 Comment: High doses of Biotin supplements (>5 mg/day) may falsely increase Vitamin B-12, Vitamin D (25OH), Free T4, and Folate results. Test specimens should be collected at least 8 hrs after [facility] CLINIC [MASS/VOLU st ingestion of high dose biotin. High doses of Biotin supplements (>5 mg/day) may falsely decrease Total PSA, Free PSA, Pro-BNP, AFP, C-Peptide and Ferritin results. Test specimens should be col ME] IN lected at least 8 hours after the last ingestion of high dose biotin. CAUTION REGARDING BNP, NT-PRO: This is an N-Terminal ProBNP assay. While fnc-N-Zbplnltd BNP assays have roughly the same predictive SERUM OR power for acces sing heart failure, reference ranges are different and results obtained between the two assays cannot be used interchangeably. LDL Direct Adult Reference Range: Optimal <100 mg/dL PLASMA Near optimal/abo ve optimal 100-129 mg/dL Borderline high 130-159 mg/dL High 160-189 mg/dL Very High 190 mg/dL Note that non-fasting results may be slightly lower than fasting results. Ordering Provid er: FRANCESCO GARDUNO Report Released Date/Time: Mar 16, 2021 10:12 PM Reporting Lab: SHE Pimentel [address] [place] [address] Performing Lab: SHE Pimentel [address] [place] [address] LIPID CHOLESTERO 95 <130 - 130 03/22 Specimen T ype: SERUM [place] PANEL L NON HDL /2020 Comment: High doses of Biotin supplements (>5 mg/day) may falsely increase Vitamin B-12, Vitamin D (25OH), Free T4, and Folate results. Test specimens should be collected at least 8 hrs after [facility] CLINIC [MASS/VOLU st ingestion of high dose biotin. High doses of Biotin supplements (>5 mg/day) may falsely decrease Total PSA, Free PSA, Pro-BNP, AFP, C-Peptide and Ferritin results. Test specimens should be col ME] IN lected at least 8 hours after the last ingestion of high dose biotin. CAUTION REGARDING BNP, NT-PRO: This is an N-Terminal ProBNP assay. While sge-Y-Eydmriwq BNP assays have roughly the same predictive SERUM OR power for acces sing heart failure, reference ranges are different and results obtained between the two assays cannot be used interchangeably. LDL Direct Adult Reference Range: Optimal <100 mg/dL PLASMA Near optimal/abo ve optimal 100-129 mg/dL Borderline high 130-159 mg/dL High 160-189 mg/dL Very High 190 mg/dL Note that non-fasting results may be slightly lower than fasting results. Ordering Provid er: FRANCESCO GARDUNO Report Released Date/Time: Mar 16, 2021 10:12 PM Reporting Lab: SHE Pimentel [address] [place] [address] Performing Lab: SHE Pimentel [address] [place] [address] [facility] 77 0 - 129 11 Specimen Type : SERUM [place] PANEL L IN LDL /2020 Comment: High doses of Biotin supplements (>5 mg/day) may falsely increase Vitamin B-12, Vitamin D (25OH), Free T4, and Folate results. Test specimens should be collected at least 8 hrs after [facility] CLINIC [MASS/VOLU st ingestion of high dose biotin. High doses of Biotin supplements (>5 mg/day) may falsely decrease Total PSA, Free PSA, Pro-BNP, AFP, C-Peptide and Ferritin results. Test specimens should be col ME] IN lected at least 8 hours after the last ingestion of high dose biotin. CAUTION REGARDING BNP, NT-PRO: This is an N-Terminal ProBNP assay. While khk-X-Ldamwxrf BNP assays have roughly the same predictive SERUM OR power for acces sing heart failure, reference ranges are different and results obtained between the two assays cannot be used interchangeably. LDL Direct Adult Reference Range: Optimal <100 mg/dL PLASMA BY Near optimal/a vidal optimal 100-129 mg/dL Borderline high 130-159 mg/dL High 160-189 mg/dL Very High 190 mg/dL Note that non-fasting results may be slightly lower than fasting results. DIRECT Ordering Provid er: FRANCESCO GARDUNO ASSAY Report Released Date/Time: Mar 16, 2021 10:12 PM Reporting Lab: SHE Pimentel [address] [place] [address] Performing Lab: SHE Pimentel [address] [place] [address] BNP, NATRIURETI 2660 0 - 124 11/ H Specimen Type : SERUM [place] NT-PRO C /2020 Comment: High d oses of Biotin supplements (>5 mg/day) may falsely increase Vitamin B-12, Vitamin D (25OH), Free T4, and Folate results. Test specimens should be collected at least 8 hrs after [facility] PEPTIDE.B st ingestion o f high dose biotin. High doses of Biotin supplements (>5 mg/day) may falsely decrease Total PSA, Free PSA, Pro-BNP, AFP, C-Peptide and Ferritin results. Test specimens should be col PROHORMONE lected at nani st 8 hours after the last ingestion of high dose biotin. CAUTION REGARDING BNP, NT-PRO: This is an N-Terminal ProBNP assay. While bkz-Z-Gzoyulag BNP assays have roughly the same predictive N-TERMINAL power for acc essing heart failure, reference ranges are different and results obtained between the two assays cannot be used interchangeably. LDL Direct Adult Reference Range: Optimal <100 mg/dL [MASS/VOLU Near optimal/ above optimal 100-129 mg/dL Borderline high 130- 159 mg/dL High 160-189 mg/dL Very High 190 mg/dL Note that non-fasting results may be slightly lower than fasting results. ME] IN Ordering Provid er: FRANCESCO GARDUNO SERUM OR Report Release d Date/Time: Mar 16, 2021 10:12 PM PLASMA Reporting Lab: SHE Pimentel [address] [place] [facility] [address] Performing Lab: SHE Pimentel [address] [address] Vital Signs Combined list of inpatient and outpatient Vital Signs from Department of Defense and Veterans Affairs, ranging from 12 months to all on record, depending upon the facility. Vital Sign Value Date Comments Source Systolic Blood Pressure 155mm[Hg] 11/11/2014 16:51:07 Ambulatory Pharmacy Diastolic Blood Pressure 81mm[Hg] 11/11/2014 16:51:07 Ambulatory Pharmacy Systolic Blood Pressure 134mm[Hg] 11/23/2015 16:26:01 Ambulatory Pharmacy Diastolic Blood Pressure 67mm[Hg] 11/23/2015 16:26:01 Ambulatory Pharmacy Systolic Blood Pressure 142mm[Hg] 10/23/2017 15:40:01 Ambulatory Pharmacy Diastolic Blood Pressure 66mm[Hg] 10/23/2017 15:40:01 Ambulatory Pharmacy Systolic Blood Pressure 145mm[Hg] 11/07/2018 19:20:22 Ambulatory Pharmacy Diastolic Blood Pressure 73mm[Hg] 11/07/2018 19:20:22 Ambulatory Pharmacy Systolic Blood Pressure 140mm[Hg] 03/18/2013 20:13:42 Ambulatory Pharmacy Diastolic Blood Pressure 80mm[Hg] 03/18/2013 20:13:42 Ambulatory Pharmacy Systolic Blood Pressure 130mm[Hg] 11/07/2018 20:27:53 Ambulatory Pharmacy Diastolic Blood Pressure 70mm[Hg] 11/07/2018 20:27:53 Ambulatory Pharmacy Systolic Blood Pressure 156mm[Hg] 06/30/2014 20:42:19 Ambulatory Pharmacy Diastolic Blood Pressure 80mm[Hg] 06/30/2014 20:42:19 Ambulatory Pharmacy Systolic Blood Pressure 138mm[Hg] 11/11/2014 16:57:49 Ambulatory Pharmacy Diastolic Blood Pressure 74mm[Hg] 11/11/2014 16:57:49 Ambulatory Pharmacy Systolic Blood Pressure 139mm[Hg] 02/09/2015 17:40:35 Ambulatory Pharmacy Diastolic Blood Pressure 62mm[Hg] 02/09/2015 17:40:35 Ambulatory Pharmacy Systolic Blood Pressure 153mm[Hg] 11/11/2014 16:45:44 Ambulatory Pharmacy Diastolic Blood Pressure 84mm[Hg] 11/11/2014 16:45:44 Ambulatory Pharmacy Encounters Combined list of: 1) Encounters from Department of Veterans Affairs facilities going back up to the last 18 months. 2) Encounters from the Department of Defense facilities going back up to 280 months. Location Location Encounter Encounter Reason Attending ADM AL Stat Disposition Source Details Type Number For Provider Date Date Visit Outpatient 02/14 [facility] Encounter [id number] Leroy LUBIN [facility] Outpatient 03/10 [facility] Encounter [id number] Leroy LUBIN [facility] OFFICE O/P Diagnos NEELKULDIP 03/11 [facility] EST [id number] is: RISTIE N [facility] MINIMAL 14 ICD-10- CLINIC [facility]with Provide r Comment [facility]: [facility] 72730-6 Diagnos NACHO GARDUNO 03/29 [place] [id number] is: ON N [facility] 40-54 MIN 62 ICD-10- CLINIC CM I48.91 Unspeci fied atrial fibrill ation<b r/>with Provide r Comment s: Unspeci fied Atrial Fibrill ation Outside [id number] QUYEN 06/15 06/15 687 Documentat Z /2021 Ramona Lubin [facility] Herman FRITZ [facility] Between [id number] Type 2 08/31 08/31 Discharge 687 Visit diabete /2021 Disposition: Quoc tran Home or Self n M mellitu Care Tristian tran t without Memoria complic [facility] ations Procedures Combined list of: 1) Procedures from Department of Veterans Affairs facilities going back up to the last 18 months, not all [place] non-surgical procedures are included; 2) All procedures from the Department of [facility] facilities. Procedure Procedure Type Code Date Perfomer Comments [facility] e COLONOSCOPY, Colonoscopy, [address] Private Sumit MORALES bulatory FLEXIBLE; flexible, proximal 6 Normal P harmacy DIAGNOSTIC, to splenic INCLUDING flexure; COLLECTION OF diagnostic, with SPECIMEN(S) BY or without BRUSHING OR collection of WASHING, WHEN specimen(s) by PERFORMED brushing or (SEPARATE washing, with or PROCEDURE) without colon decompression (separate procedure) Social History Combined list of available smoking, tobacco, and other social history from [facility]. Social History Type Response Date Comment Source Tobacco smoking [place]-TOBACCO FORMER USER 03/29/2021 [facility] NHIS History of tobacco [place]-TOBACCO QUIT 15 YRS 03/29/2021 [facility] use OR MORE History of tobacco [place]-TOBACCO QUIT 15 YRS 10/27/2018 [facility] use OR MORE History of tobacco TOBACCO SCREEN 08/06/2017 [facility] [place] [facility] use COMPLETED History of tobacco LIFETIME NON-USER OF 02/16/2009 Nicolle [facility] use TOBACCO History of tobacco TOBACCO COUNSELING 04/03/2006 MAN [facility] use OFFERED Assessment and Plan Combined list of future care activities from Department of Defense and Veterans Affairs facilities (e.g., assessment and plan notes, appointments, orders, and referrals). Additional future care activities may be listed in the Plan of Care section. Result Assessment and Plan Date Source Assessment and Plan No data available for this 04/20/2022 [facility] section Functional Status Combined list of recent functional and cognitive assessments recorded at Department of Defense and [facility] ([facility] Functional [place] Measurement (FIM) Scale: 1 = Total Assistance (Subject = 0% +), 2 = Maximal Assistance (Subject = 25% +), 3 = Moderate Assistance (Subject = 50% +), 4 = Mi nimal Assistance (Subject = 75% +), 5 = Supervision, 6 = Modified [place] (Device), 7 = Complete [place] (Timely, Safely). Assessment Source Assessment Type Assessment Assessment Assessmen t Date/Time Skill Score Details No data available for this section
--- OUTSIDE RECORDS SUMMARY | 2022-04-19 16:11 | External Medical Summary ---
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 [phone] Allergies Code Code System Name Reaction Severity Status Onset 5933 RxNorm Iodine Active [id number] RxNorm Latex Hives Mild to Moderate Active Medications Name Status Start Date Stop Date albuterol sulfate HFA 90 mcg/actuation aerosol Active Not available inhaler allopurinol 100 mg tablet Active Not av ailable TAKE 1 TABLET BY MOUTH ONCE DAILY amiloride 5 mg tablet Completed 07/03/2017 amlodipine 10 mg tablet Active Not avai lable TAKE 1 TABLET BY MOUTH ONCE DAILY amlodipine 5 mg tablet Completed 2 1 po QD aspirin 81 mg tablet,delayed release Active Not available Take 1 tablet 3 times a week by oral route as directed. atorvastatin 20 mg tablet Active Not av ailable TAKE 1 TABLET BY MOUTH ONCE DAILY IN THE EVENING bumetanide 0.5 mg tablet Completed 022 One tablet Daily bumetanide 1 mg tablet Completed 2 TAKE 1 TABLET BY MOUTH ONCE DAILY bumetanide 2 mg tablet Active Not avail able TAKE 1 TABLET BY MOUTH ONCE DAILY FOR EDEMA calcitriol 0.25 mcg capsule Completed 07/18 TAKE 1 CAPSULE BY MOUTH ONCE DAILY calcitriol 0.5 mcg capsule Active Not a vailable TAKE 1 CAPSULE BY MOUTH ONCE DAILY FOR HYPOPARATHYROIDISM Calcium 600 mg calcium (1,500 mg) tablet Active Not available Take 1 tablet every day by oral route. calcium acetate(phosphate binders) 667 mg Completed 07/03/2017 capsule Cartia XT 180 mg capsule,extended release Completed 07/02/2019 cefuroxime axetil 500 mg tablet Completed 07/02/2019 cetirizine 10 mg tablet Active Not avai lable Take 1 tablet every day by oral route. chlorthalidone 25 mg tablet Completed 06/20 ciprofloxacin 250 mg tablet Completed 06/20 clonidine HCl 0.1 mg tablet Completed 07/18 Take one tablet daily daptomycin 500 mg intravenous solution Completed 8 07/03/2017 Inject 6 g every day by intravenous route as directed. docusate sodium Active Not available 50mg 1 cap po QD doxazosin 4 mg tablet Completed 07/17/2017 doxycycline hyclate 100 mg capsule Completed 07/03/2017 Eliquis 2.5 mg tablet Active Not availa ble Take 1 tablet twice a day by oral route. Fish Oil Active Not available one capsule by mouth once daily folic acid 1 mg tablet Completed 2 Take 1 tablet every day by oral route. furosemide 40 mg tablet Completed 07/02/19 20 1 po QD hydralazine 25 mg tablet Completed 020 iron Completed 07/28/2021 236 mg po QD levofloxacin 750 mg tablet Completed 07/02 lisinopril 10 mg tablet Completed 07/29/19 22 lisinopril 2.5 mg tablet Completed 022 lisinopril 5 mg tablet Completed 2 losartan 100 mg tablet Completed 0 losartan 50 mg tablet Completed 07/28/2021 metoprolol succinate ER 100 mg tablet,extended release 24 hr Act leighann Not available TAKE 1 TABLET BY MOUTH ONCE DAILY metoprolol tartrate 100 mg tablet Completed 07/03/2017 metoprolol tartrate 25 mg tablet Completed 07/02/2019 metoprolol tartrate 50 mg tablet Completed 07/02/2019 omeprazole 20 mg capsule,delayed release Completed 07/03/2017 omeprazole 40 mg capsule,delayed release Completed 07/28/2021 1 po QD Renvela 800 mg tablet Completed 07/02/2019 1 po QD rifampin 300 mg capsule Completed 07/17/19 18 Take 1 capsule twice a day by oral route as directed. sertraline 50 mg tablet Completed 07/29/19 22 sodium polystyrene sulfonate (sorbitol free) 15 Completed 07/02/2019 gram/60 mL oral susp tamsulosin 0.4 mg capsule Active Not av ailable TAKE 1 CAPSULE BY MOUTH TWICE DAILY tramadol 50 mg tablet Active Not availa ble Tylenol 325 mg tablet Completed 07/02/2019 Take 1 tablet every 6 hours by oral route as needed. valsartan 320 mg tablet Active Not avai lable TAKE 1 TABLET BY MOUTH ONCE DAILY FOR HYPERTENSION AND PROTEIN IN THE URINE valsartan 80 mg tablet Completed 2 TAKE 1 TABLET BY MOUTH ONCE DAILY REPLACES LOSARTAN Vitamin C 500 mg capsule,extended release Completed 07/28/2021 Take 1 capsule every day by oral route. Vitamin D3 25 mcg (1,000 unit) capsule Active Not available Take 4 capsules every day by oral route. vitamin E (dl, acetate) 90 mg (200 unit) capsule Active Not available Take 1 capsule every day by oral route. Notes: Meds verified via list from Dr. Sesay's office. 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 Active 07/04/2017 ESR Raised Active 07/04/2017 C-reactive Protein Abnormal Active 07/04/2017 Infection AND/OR Inflammatory Reaction Due to Internal Active 07/04/2017 Prosthetic Device, Implant AND/OR Graft Procedures Date Name Performed by Knee Surgery Information not avai lable 07/02/2019 Electrocardiogram [facility] [address] [place] [address] (Work Place) Results Lab Results Date Name Specimen Result Interpretation Description Value Range Status Address 08/08/2017 CBC W/ Automated blood Wbc 5.2 4.5-11.0 Fi nal Pathologists' Auto Diff basophil count K/mcL K/mcL Regional Lab: (count/volume) 41 09 22 [facility] Automated blood Low Rbc 3.26 4.50-5.90 Final Pathologists' basophil count M/mcL M/mcL [facility] Lab: (count/volume) 41 09 22 [facility] Automated blood Low Hemoglo 10.6 13.5-16.5 [facility] Pathologists' basophil count bin g/dL g/dL Re [facility] Lab: (count/volume) 41 09 22 [facility] Automated blood Low Hematoc 31.5 % 41.0-55.0 Fin ga Pathologists' basophil count rit % Re [facility] Lab: (count/volume) [facility] Automated blood Mean 96.9 80.0-100. Final Pathologists' basophil count Cell fL 0 fL Re gional Lab: (count/volume) Volume [address] [facility] Automated blood Mean 32.5 26.0-34.0 Final Pathologists' basophil count Corpuscu pg pg Regional Lab: (count/volume) lar 41 , Hemoglob [place] in Automated blood Mean 33.5 31.0-36.0 Final Pathologists' basophil count Corpuscu g/dL g/dL Regional Lab: (count/volume) lar HGB [address], Conc [place] Automated blood High Red 15.2 % 11.5-14.5 Final Pathologists' basophil count Cell % Re gional Lab: (count/volume) Distribu [address], tion [place] Width Automated blood Platele 236 140-440 Final Pathologists' basophil count t Count K/mcL K/mcL R egional Lab: (count/volume) [address], [place] Automated blood Low Mean 6.9 fL 7.4-10.4 Final Pathologists' basophil count Platelet fL Regional Lab: (count/volume) Volume [address], [place] Automated blood Gran % 66.1 % 38.0-78.0 Sara l Pathologists' basophil count % Re gional Lab: (count/volume) [address], [place] Automated blood Lymph % 17.3 % 15.5-49.0 Fin al Pathologists' basophil count % Re gional Lab: (count/volume) [address], [place] Automated blood [place] % 8.6 % 1.0-12.0 Final Pathologists' basophil count % Re gional Lab: (count/volume) [address], [place] Automated blood High Eos % 7.4 % 0.0-7.0 % Final Pathologists' basophil count Re gional Lab: (count/volume) [address], [place] Automated blood Baso % 0.6 % 0.0-2.0 % Sara l Pathologists' basophil count Re gional Lab: (count/volume) [address], [place] Automated blood Gran # 3.4 1.8-8.0 Final Pathologists' basophil count K/mcL K/mcL Re gional Lab: (count/volume) [address], [place] Automated blood Low Lymph # 0.9 1.5-4.8 Final Pathologists' basophil count K/mcL K/mcL Re gional Lab: (count/volume) [address], [place] Automated blood [place] # 0.4 0.1-0.9 Final Pathologists' basophil count K/mcL K/mcL Re gional Lab: (count/volume) [address], [place] Automated blood Eos # 0.4 0.0-0.7 Final Pathologists' basophil count K/mcL K/mcL Re gional Lab: (count/volume) [address] [place] [address] Automated blood Baso # 0.0 0.0-0.3 Final Pathologists' basophil count K/mcL K/mcL Re gional Lab: (count/volume) [address] [place] [address] 08/08/2017 CMP, Serum Glucose 102 70-105 Final Pathologists' or Plasma ,random mg/dL mg/dL Region al Lab: [address] [place] [address] High Blood 60 8-23 Final Pathologis ts' Urea mg/dL mg/dL Regional L ab: Nitrogen [address] [place] [address] High Creatin 2.0 0.7-1.2 Final Patholo gists' ine mg/dL mg/dL Regional L ab: [address] [place] [address] Sodium 143 133-145 Final Patholog ists' mmol/L mmol/L Regional L ab: [address] [place] [address] Potassi 5.7 3.3-5.1 Final Patholo gists' um mmol/L mmol/L Regional L ab: [address] [place] [address] Chlorid 107 96-108 Final Patholog ists' e mmol/L mmol/L Regional L ab: [address] [place] [address] Carbon 23 22-30 Final Pathologi sts' Dioxide mmol/L mmol/L Regional Lab: [address] [place] [address] Anion 13.0 8-16 Final Pathologis ts' [place] Regional L ab: [address] [place] [address] Calcium 8.7 8.6-10.4 Final Pathol ogists' mg/dL mg/dL Regional L ab: [address] [place] [address] Total 6.8 5.9-8.4 Final Pathologi sts' Protein gm/dL gm/dL Regional Lab: [address] [place] [address] Albumin 4.1 3.2-5.2 Final Patholo gists' gm/dL gm/dL Regional L ab: [address] [place] [address] Globuli 2.7 2.2-3.7 Final Patholo gists' n gm/dL gm/dL Regional L ab: [address] [place] [address] Alb/ganesh 1.5 1.0-2.3 Final Patholo gists' b Ratio Regional Lab: [address] [place] [address] Bilirub < 0.2 0.0-1.0 Final Patholo gists' in,total mg/dL mg/dL Regional Lab: [address] , [place] AST/SGO 12 U/l 0-37 U/l Final Pathol ogists' T Regional L ab: [address] , [place] ALT/SGP 8 U/l 0-40 U/l Final Pathol ogists' T Regional L ab: [address] , [place] Alkalin 102 39-117 Final Patholog ists' e U/L U/L Regional L ab: Phosphat [address], ase [place] Glomeru 31 Final Patholog ists' lar Regional L ab: Filtrati [address], on Rate [place] 08/08/2017 C-reactive Serum or plasma C-react 0.7 0.0-0 .8 Final Pathologists' Protein, C reactive leighann mg/dL mg/dL Liz onal Lab: Quantitati protein Protein [address], ve measurement Sp ton (mass/volume) 08/08/2017 ESR Erythrocyte High Erythro 56 0-15 Final Pathologists' (Erythrocy sedimentation cyte Sed mm/HR mm/HR Regional Lab: te rate (ESR) Rate [address], Sedimentat [facility] on ion Rate), Blood 07/17/2017 Culture, LEG Results Pa thologists' Wound Regional L ab: [address] , [place] 07/15/2017 CBC W/ Automated blood Wbc 5.2 4.5-11.0 Fi nal Pathologists' Auto Diff basophil count K/mcL K/mcL Regional Lab: (count/volume) 41 [address] [facility] Automated blood Low Rbc 3.04 4.50-5.90 Final Pathologists' basophil count M/mcL M/mcL Re gional Lab: (count/volume) 41 [address] [facility] Automated blood Low Hemoglo 9.9 13.5-16.5 Fin al Pathologists' basophil count bin g/dL g/dL Re gional Lab: (count/volume) [address] [facility] Automated blood Low Hematoc 29.1 % 41.0-55.0 Fin al Pathologists' basophil count rit % Re gional Lab: (count/volume) 41 [address] [facility] Automated blood Mean 95.8 80.0-100. Final Pathologists' basophil count Cell fL 0 fL Re gional Lab: (count/volume) Volume [address] , [place] Automated blood Mean 32.4 26.0-34.0 Final Pathologists' basophil count Corpuscu pg pg Regional Lab: (count/volume) lar [address], Hemoglob [place] in Automated blood Mean 33.8 31.0-36.0 Final Pathologists' basophil count Corpuscu g/dL g/dL Regional Lab: (count/volume) lar HGB [address], Conc [place] Automated blood High Red 16.1 % 11.5-14.5 Final Pathologists' basophil count Cell % Re gional Lab: (count/volume) Distribu [address], tion [place] Width Automated blood Platele 247 140-440 Final Pathologists' basophil count t Count K/mcL K/mcL R egional Lab: (count/volume) [address], [place] Automated blood Low Mean 6.8 fL 7.4-10.4 Final Pathologists' basophil count Platelet fL Regional Lab: (count/volume) Volume [address], [place] Automated blood Gran % 60.1 % 38.0-78.0 Sara l Pathologists' basophil count % Re gional Lab: (count/volume) [address], [place] Automated blood Lymph % 21.5 % 15.5-49.0 Fin al Pathologists' basophil count % Re gional Lab: (count/volume) [address], [place] Automated blood [place] % 10.6 % 1.0-12.0 Final Pathologists' basophil count % Re gional Lab: (count/volume) [address], [place] Automated blood High Eos % 7.5 % 0.0-7.0 % Final Pathologists' basophil count Re gional Lab: (count/volume) [address], [place] Automated blood Baso % 0.3 % 0.0-2.0 % Sara l Pathologists' basophil count Re gional Lab: (count/volume) [address], [place] Automated blood Gran # 3.1 1.8-8.0 Final Pathologists' basophil count K/mcL K/mcL Re gional Lab: (count/volume) [address], [place] Automated blood Low Lymph # 1.1 1.5-4.8 Final Pathologists' basophil count K/mcL K/mcL Re gional Lab: (count/volume) [address], [place] Automated blood [place] # 0.6 0.1-0.9 Final Pathologists' basophil count K/mcL K/mcL Re gional Lab: (count/volume) [address] [place] [address] Automated blood Eos # 0.4 0.0-0.7 Final Pathologists' basophil count K/mcL K/mcL Re gional Lab: (count/volume) [address] [place] [address] Automated blood Baso # 0.0 0.0-0.3 Final Pathologists' basophil count K/mcL K/mcL Re gional Lab: (count/volume) [address] [place] [address] 07/15/2017 CMP, Serum High Glucose 106 70-105 Final Pathologists' or Plasma ,random mg/dL mg/dL Region al Lab: [address] [place] [address] High Blood 42 8-23 Final Pathologis ts' Urea mg/dL mg/dL Regional L ab: Nitrogen [address] [place] [address] High Creatin 1.9 0.7-1.2 Final Patholo gists' ine mg/dL mg/dL Regional L ab: [address] [place] [address] Sodium 142 133-145 Final Patholog ists' mmol/L mmol/L Regional L ab: [address] [place] [address] Potassi 4.6 3.3-5.1 Final Patholo gists' um mmol/L mmol/L Regional L ab: [address] [place] [address] , [place] Chlorid 105 96-108 Final Patholog ists' e mmol/L mmol/L Regional L ab: [address] [place] [address] Carbon 25 22-30 Final Pathologi sts' Dioxide mmol/L mmol/L Regional Lab: [address] [place] [address] Anion 12.0 8-16 Final Pathologis ts' [place] Regional L ab: [address] [place] [address] Calcium 8.7 8.6-10.4 Final Pathol ogists' mg/dL mg/dL Regional L ab: [address] [place] [address] Total 6.5 5.9-8.4 Final Pathologi sts' Protein gm/dL gm/dL Regional Lab: [address] [place] [address] Albumin 3.8 3.2-5.2 Final Patholo gists' gm/dL gm/dL Regional L ab: [address] [place] [address] Globuli 2.7 2.2-3.7 Final Patholo gists' n gm/dL gm/dL Regional L ab: [address] [place] [address] Alb/ganesh 1.4 1.0-2.3 Final Patholo gists' b Ratio Regional Lab: [address] , [place] Bilirub < 0.2 0.0-1.0 Final Patholo gists' in,total mg/dL mg/dL Regional Lab: [address] , [place] AST/SGO 12 U/l 0-37 U/l Final Pathol ogists' T Regional L ab: [address] , [place] ALT/SGP 7 U/l 0-40 U/l Final Pathol ogists' T Regional L ab: [address] , [place] High Alkalin 118 39-117 Final Patholog ists' e U/L U/L Regional L ab: Phosphat [address] , ase [place] Glomeru 33 Final Patholog ists' lar Regional L ab: Filtrati [address], on Rate [place] 07/15/2017 CK Creatin 44 24-195 Final Path ologists' (Creatine e IU/L IU/L Regiona l Lab: Kinase), Phosphok [address], Total, inase [place] Serum 07/15/2017 C-reactive Serum or plasma High C-react 1.1 0.0-0 .8 Final Pathologists' Protein, C reactive leighann mg/dL mg/dL Liz onal Lab: Quantitati protein Protein [address], ve measurement Sp ton (mass/volume) 07/15/2017 ESR Erythrocyte High Erythro 79 0-15 Final Pathologists' (Erythrocy sedimentation cyte Sed mm/HR mm/HR Regional Lab: te rate (ESR) Rate [address], Sedimentat [facility] on ion Rate), Blood 07/15/2017 Culture, BLOOD Results Pa thologists' Blood Regional L ab: [address] , [place] 07/15/2017 Culture, BLOOD Results Pa ologists' Blood Regional L ab: [address] , [place] 07/08/2017 CBC W/ Automated blood Wbc 5.2 4.5-11.0 Fi nal Pathologists' Auto Diff basophil count K/mcL K/mcL Regional Lab: (count/volume) [address] , [place] Automated blood Low Rbc 2.97 4.50-5.90 Final Pathologists' basophil count M/mcL M/mcL Re gional Lab: (count/volume) [address] , [place] Automated blood Low Hemoglo 9.7 13.5-16.5 Fin al Pathologists' basophil count bin g/dL g/dL Re gional Lab: (count/volume) [address], [place] Automated blood Low Hematoc 28.5 % 41.0-55.0 [place] al Pathologists' basophil count rit % Re gional Lab: (count/volume) [address], [place] Automated blood Mean 95.9 80.0-100. Final Pathologists' basophil count Cell fL 0 fL Re gional Lab: (count/volume) Volume [address], [place] Automated blood Mean 32.8 26.0-34.0 Final Pathologists' basophil count Corpuscu pg pg Regional Lab: (count/volume) lar [address], Hemoglob [place] in Automated blood Mean 34.2 31.0-36.0 Final Pathologists' basophil count Corpuscu g/dL g/dL Regional Lab: (count/volume) lar HGB [address], Conc [place] Automated blood High Red 15.4 % 11.5-14.5 Final Pathologists' basophil count Cell % Re gional Lab: (count/volume) Distribu [address], tion [place] Width Automated blood # Platele 256 140-440 Final Pathologists' basophil count t Count K/mcL K/mcL R egional Lab: (count/volume) [address], [place] Automated blood Low Mean 6.8 fL 7.4-10.4 Final Pathologists' basophil count Platelet fL Regional Lab: (count/volume) Volume [address], [place] Automated blood Gran % 60.3 % 38.0-78.0 Sara metzger Pathologists' basophil count % Re gional Lab: (count/volume) [address], [place] Automated blood Lymph % 22.7 % 15.5-49.0 [place] Pathologists' basophil count % Re gional Lab: (count/volume) [address], [place] Automated blood [place] % 9.1 % 1.0-12.0 Final Pathologists' basophil count % Re gional Lab: (count/volume) [address], [place] Automated blood High Eos % 7.5 % 0.0-7.0 % Final Pathologists' basophil count Re gional Lab: (count/volume) [address], [place] Automated blood Baso % 0.4 % 0.0-2.0 % Sara metzger Pathologists' basophil count Re gional Lab: (count/volume) [address], [place] Automated blood Gran # 3.2 1.8-8.0 Final Pathologists' basophil count K/mcL K/mcL Re gional Lab: (count/volume) [address] , [place] Automated blood Low Lymph # 1.2 1.5-4.8 Final Pathologists' basophil count K/mcL K/mcL Re gional Lab: (count/volume) [address] , [place] Automated blood [place] # 0.5 0.1-0.9 Final Pathologists' basophil count K/mcL K/mcL Re gional Lab: (count/volume) [address] , [place] Automated blood Eos # 0.4 0.0-0.7 Final Pathologists' basophil count K/mcL K/mcL Re gional Lab: (count/volume) [address] , [place] Automated blood Baso # 0.0 0.0-0.3 Final Pathologists' basophil count K/mcL K/mcL Re gional Lab: (count/volume) [address] , [place] 07/08/2017 CMP, Serum High Glucose 109 70-105 Final Pathologists' or Plasma ,random mg/dL mg/dL Region al Lab: [address] [facility] , [place] High Blood 44 8-23 Final Pathologis ts' Urea mg/dL mg/dL Regional L ab: Nitrogen [address] [facility], [place] High Creatin 1.8 0.7-1.2 Final Patholo gists' ine mg/dL mg/dL Regional L ab: [address] [place] [address] Sodium 144 133-145 Final Patholog ists' mmol/L mmol/L Regional L ab: [address] [facility] , [place] Potassi 4.5 3.3-5.1 Final Patholo gists' um mmol/L mmol/L Regional L ab: [address] [facility] , [place] Chlorid 108 96-108 Final Patholog ists' e mmol/L mmol/L Regional L ab: [address] [facility] , [place] Carbon 27 22-30 Final Pathologi sts' Dioxide mmol/L mmol/L Regional Lab: [address] [place] [address] Anion 9.0 8-16 Final Pathologis ts' [place] Regional L ab: [address] [place] [address] Low Calcium 8.4 8.6-10.4 Final Pathol ogists' mg/dL mg/dL Regional L ab: [address] [place] [address] Total 6.5 5.9-8.4 Final Pathologi sts' Protein gm/dL gm/dL Regional Lab: [address] [place] [address] Albumin 3.9 3.2-5.2 Final Patholo gists' gm/dL gm/dL Regional L ab: [address] [facility] , [place] Globuli 2.6 2.2-3.7 Final Patholo gists' n gm/dL gm/dL Regional L ab: [address] [facility] , [place] Alb/ganesh 1.5 1.0-2.3 Final Patholo gists' b Ratio Regional Lab: [address] [facility] , [place] Bilirub < 0.2 0.0-1.0 Final Patholo gists' in,total mg/dL mg/dL Regional Lab: [address] [place] [address] AST/SGO 13 U/l 0-37 U/l Final Pathol ogists' T Regional L ab: [address] [place] [address] ALT/SGP 9 U/l 0-40 U/l Final Pathol ogists' T Regional L ab: [address] [place] [address] High Alkalin 120 39-117 Final Patholog ists' e U/L U/L Regional L ab: Phosphat [address] [facility], ase [place] Glomeru 35 Final Patholog ists' lar Regional L ab: Filtrati [address] [facility], on Rate [place] 07/08/2017 C-reactive Serum or plasma High C-react 0.9 0.0-0 .8 Final Pathologists' Protein, C reactive leighann mg/dL mg/dL Liz onal Lab: Quantitati protein Protein [address] [facility], ve measurement Sp ton (mass/volume) 07/08/2017 ESR Erythrocyte High Erythro 80 0-15 Final Pathologists' (Erythrocy sedimentation cyte Sed mm/HR mm/HR Regional Lab: te rate (ESR) Rate [address] , Sedimentat [facility] on ion Rate), Blood 06/26/2017 CMP, Serum High Glucose 116 70-105 Final Pathologists' or Plasma ,random mg/dL mg/dL Region al Lab: [address] [place] [address] High Blood 48 8-23 Final Pathologis ts' Urea mg/dL mg/dL Regional L ab: Nitrogen [address] [place] [address] High Creatin 2.0 0.7-1.2 Final Patholo gists' ine mg/dL mg/dL Regional L ab: [address] [place] [address] Sodium 144 133-145 Final Patholog ists' mmol/L mmol/L Regional L ab: [address] [facility] , [place] Potassi 4.5 3.3-5.1 Final Patholo gists' um mmol/L mmol/L Regional L ab: [address] [facility] , [place] Chlorid 104 96-108 Final Patholog ists' e mmol/L mmol/L Regional L ab: [address] [facility] , [place] Carbon 27 22-30 Final Pathologi sts' Dioxide mmol/L mmol/L Regional Lab: [address] [facility] , [place] Anion 13.0 8-16 Final Pathologis ts' [place] Regional L ab: [address] [facility] , [place] Calcium 8.8 8.6-10.4 Final Pathol ogists' mg/dL mg/dL Regional L ab: [address] [facility] , [place] Total 6.7 5.9-8.4 Final Pathologi sts' Protein gm/dL gm/dL Regional Lab: [address] [place] [address] Albumin 3.7 3.2-5.2 Final Patholo gists' gm/dL gm/dL Regional L ab: [address] [facility] , [place] Globuli 3.0 2.2-3.7 Final Patholo gists' n gm/dL gm/dL Regional L ab: [address] [place] [address] , [place] Alb/ganesh 1.2 1.0-2.3 Final Patholo gists' b Ratio Regional Lab: [address] [place] [address] Bilirub 0.2 0.0-1.0 Final Patholo gists' in,total mg/dL mg/dL Regional Lab: [address] [place] [address] AST/SGO 14 U/l 0-37 U/l Final Pathol ogists' T Regional L ab: [address] [place] [address] ALT/SGP 9 U/l 0-40 U/l Final Pathol ogists' T Regional L ab: [address] [facility] , [place] Alkalin 113 39-117 Final Patholog ists' e U/L U/L Regional L ab: Phosphat [address] [facility], ase [place] Glomeru 31 Final Patholog ists' lar Regional L ab: Filtrati [address] [facility], on Rate [place] 06/26/2017 CK Creatin 71 24-195 Final Path ologists' (Creatine e IU/L IU/L Regiona l Lab: Kinase), Phosphok [address], Total, inase [place] Serum 06/26/2017 ESR Erythrocyte High Erythro 80 0-15 Final Pathologists' (Erythrocy sedimentation cyte Sed mm/HR mm/HR Regional Lab: te rate (ESR) Rate [address], Sedimentat [place] on ion Rate), Blood Past Encounters Encounter Date Diagnosis Provider 07/28/2021 Persistent Atrial Fibrillation; Ky hugo MD: [address], Essential Hypertension; [place] [id number], Ph. Hyperlipidemia; Chronic Diastolic Heart Failure Social History Tobacco Smoking Status Never Smoker Vaccine List Vaccine Type COVID-19, mRNA, LNP-S, PF, 30 mcg/0.3 mL dose (Debitos) 06/13/2020 07/05/2020 02/14/2021 influenza, injectable, quadrivalent 06/13/2021 Plan of Care Reminders Provider Appointments None recorded. Lab None recorded. Referral None recorded. Procedures None recorded. Surgeries None recorded. Imaging None recorded. Vitals 07/28/2021 04:30PM CARDIO-ESTABLISHED PATIENT Height Weight BMI Blood Pressure 5 ft 5 in 310 lbs 51.6 kg/m2 150/76 mm[Hg] 07/02/2019 09:00AM CARDIO-ESTABLISHED PATIENT Height Weight BMI Blood Pressure 5 ft 5 in 277 lbs 46.1 kg/m2 139/81 mm[Hg] 08/01/2017 10:00AM Established Patient 15 Height Weight BMI Blood Pressure 5 ft 4 in 271 lbs 46.5 kg/m2 140/72 mm[Hg] 07/17/2017 01:30PM Established Patient 15 Height Weight BMI Blood Pressure 5 ft 4 in 281 lbs 48.2 kg/m2 150/80 mm[Hg] 07/04/2017 11:00AM Established Patient 15 Height Weight BMI Blood Pressure 5 ft 4 in 270 lbs 46.3 kg/m2 130/70 mm[Hg]
[2022-04-19] MEDS ORDERED: MAGNESIUM SULFATE 2 GM/50 ML BAG IV PRN (16:17)
[2022-04-19] MEDS ORDERED: IPRATROPIUM/ALBUTEROL 3 ML AMPUL.NEB NEB PRN (16:17)
[2022-04-19] MEDS ORDERED: ACETAMINOPHEN 325 MG TABLET PO PRN (16:17)
[2022-04-19] MEDS ORDERED: ONDANSETRON 4 MG/2 ML VIAL IV PRN (16:17)
[2022-04-19] MEDS ORDERED: POLYETHYLENE GLYCOL 3350 17 GM PACKET PO PRN (16:17)
[2022-04-19] MEDS ORDERED: POTASSIUM CHLORIDE 20 MEQ TABLET PO PRN ×2 (16:17)
[2022-04-19] MEDS ORDERED: SENNOSIDES 1 TABLET PO PRN (16:17)
[2022-04-19] MEDS ORDERED: METOPROLOL TARTRATE 5 MG/5 ML VIAL IV PRN (16:17)
[2022-04-19] MEDS ORDERED: POTASSIUM CHLORIDE 40 MEQ in DEXTROSE 5% IN WATER 500 ML IV PRN (16:17)
[2022-04-19] MEDS ORDERED: NITROGLYCERIN/D5W 25 MG/250 ML BOTTLE IV SCH (16:17)
[2022-04-19] MEDS ORDERED: HYDROCHLOROTHIAZIDE 25 MG TABLET PO SCH (16:20)
[2022-04-19 16:26] LABS: ALT/SGPT 9 U/L (<40); AST/SGOT 9 U/L (<40); Albumin 3.2 gm/dL (3.2-5.2); Albumin/Globulin Ratio 1.1 (1.0-2.3); Alkaline Phosphatase 112 U/L (39-117); Bilirubin,Direct < 0.2 mg/dL (0-0.3); Bilirubin,Total 0.4 mg/dL (0.1-1.0); Blood Urea Nitrogen 61 mg/dL (8-23); Calcium 8.7 mg/dL (8.6-10.4); Carbon Dioxide 18 mmol/L (22-30); Chloride 110 mmol/L (96-108); Glomerular Filtration Rate 12; Glucose 108 mg/dL (70-105); Lactate Dehydrogenase 238 U/L (135-225); Phosphorous 5.5 mg/dL (2.5-4.5); Triglycerides 107 mg/dL (<150); Uric Acid 8.6 mg/dL (2.5-8.0)
[2022-04-19] MEDS: BUMETANIDE 1 MG/4 ML VIAL IV SCH (17:05)
[2022-04-19] MEDS: 0.9 % SODIUM CHLORIDE 250 ML IV SCH (18:15)
[2022-04-19] MEDS ORDERED: FAMOTIDINE/PF 20 MG/2 ML VIAL IV SCH (21:00)
[2022-04-19] MEDS ORDERED: ATORVASTATIN 20 MG TABLET PO SCH (21:00)
[2022-04-19 21:37] LABS: ABG Methemoglobin 0.2 % (0.4-1.5); Total Hemoglobin 10.8 gm/Dl (13.5-16.5); VBG Base Excess -7 (-2-3); VBG HCO3 18.7 mmol/L (24.0-28.0); VBG PCO2 38.3 mmHg (41.0-51.0); VBG PH 7.31 U (7.32-7.42); VBG PO2 140.2 mmHg (25.0-40.0); VBG Total CO2 19.9 mmol/L (25.0-29.0)
[2022-04-19] MEDS: DOCUSATE SODIUM 100 MG CAPSULE PO SCH (21:44)
[2022-04-19] MEDS: 0.9 % SODIUM CHLORIDE 10 ML SYRINGE IV SCH (21:45)
[2022-04-20] MEDS: LABETALOL 5 MG/ML ML IV PRN ×3 (01:50→08:05)
[2022-04-20] MEDS: 0.9 % SODIUM CHLORIDE 250 ML IV SCH (05:05)
[2022-04-20] MEDS: 0.9 % SODIUM CHLORIDE 10 ML SYRINGE IV SCH (05:07)
[2022-04-20 06:58] LABS: Basophils # (Auto) 0.04 K/mcL (0.00-0.30); Basophils % (Auto) 0.6 % (0.0-2.0); Eosinophils # (Auto) 0.07 K/mcL (0.00-0.70); Hematocrit 32.7 % (40.1-51.0); Hemoglobin 9.5 g/dL (13.7-17.5); Lymphocytes # (Auto) 0.41 K/mcL (1.50-4.80); Lymphocytes % (Auto) 6.1 % (15.5-49.0); Mean Cell Volume 109.7 fL (80.0-100.0); Mean Corpuscular HGB Conc 29.1 g/dL (31.0-36.0); Monocytes # (Auto) 0.78 K/mcL (0.10-0.90); Monocytes % (Auto) 11.7 % (1.0-12.0); Neutrophils % (Auto) 79.7 % (38.0-78.0); Platelet Count 209 K/mcL (140-440); RBC 2.98 M/mcL (4.63-6.08); Red Cell Distribution Width 16.8 % (11.5-14.5); WBC 6.7 K/mcL (4.5-11.0)
[2022-04-20 07:53] LABS: ALT/SGPT 7 U/L (<40); AST/SGOT 9 U/L (<40); Albumin 3.3 gm/dL (3.2-5.2); Albumin/Globulin Ratio 1.3 (1.0-2.3); Alkaline Phosphatase 123 U/L (39-117); Bilirubin,Direct < 0.2 mg/dL (0-0.3); Bilirubin,Total 0.4 mg/dL (0.1-1.0); Blood Urea Nitrogen 64 mg/dL (8-23); Calcium 8.3 mg/dL (8.6-10.4); Carbon Dioxide 18 mmol/L (22-30); Chloride 111 mmol/L (96-108); Globulin 2.6 gm/dL (2.2-3.7); Glomerular Filtration Rate 12; Glucose 95 mg/dL (70-105); Lactate Dehydrogenase 207 U/L (135-225); Phosphorous 6.2 mg/dL (2.5-4.5); Triglycerides 87 mg/dL (<150); Uric Acid 8.5 mg/dL (2.5-8.0)
[2022-04-20] MEDS: BUMETANIDE 1 MG/4 ML VIAL IV SCH (08:05)
--- NOTE | 2022-04-20 08:30 | Internal Med Progress Note ---
SUBJECTIVE Subjective Patient information: Note initiated : 04/20/22 at 8:22 am Service Date, if different from initiated Date: [] Patient: Hunter Munoz a 86 y/o M admitted on 04/19/22 for shortness of breath. Chief Complaint: [] Interval history: History of present illness: Mr. Munoz is a 86 year old M Presents to the ED for generalized weakness confusion shortness of breath. Cording to the patient and family he has been off his medication for at least 6 weeks because they thought his medications were killing him. He is retained much fluid but does not check his weight at home to determine how much she is gained. He has a history of at least stage IV chronic kidney disease and was on dialysis in the past but refuses to go back on. He did have an mildly elevated troponin which remained stable in the ED and patient said he would not want any cardiac intervention. He does have a history of paroxysmal atrial fibrillation. The son believes patient had a slight heart attack a few weeks ago when patient was complaining of some chest and arm pain that eventually resolved. Found a pulmonary edema and was hypoxic. He was acidotic and hypercapnic. His creatinine was which much worse than baseline. Patient denies cough but complains of shortness of breath. By EMS he was found to be 82% on room air. The ceph COVID and RSV are negative in the ed. Is just started on IV Lasix in the ED. Given nitro by EMS. Also hypertensive in the ED. 04/20 Patient on BiPAP for a the evening. And then transition to nasal cannula. Did well through the night. However this morning around 8 he became unresponsive. ABG showing CO2 retention respiratory acidosis. BiPAP placed. Started to show improvement on the BiPAP. Mediocre response to diuresis. Renal function similar to yesterday no real improvement. Metabolic acidosis as well. Extremely guarded prognosis. Patient currently denies shortness of breath on the BiPAP. Per nursing notes last night patient expressed that he wanted to go home and . When I talked to him today about goals of care he was wondering why we are doing all this and I discussed with him comfort care status and thusly seem to want to transition to. Review of Systems: denies headache/fever/chills/nausea/vomiting/chest or abdominal pain/diarrhea. Otherwise see above. Constitutional Vitals: Vital Signs Temp Pulse Resp BP Pulse Ox O2 Del Method O2 Flow Rate 98.2 F 72 18 156/62 92 2 04/20/22 00:11 04/20/22 07:02 04/20/22 07:02 04/20/22 07:02 04/20/22 07:02 04/20/22 06:02 04/20/22 06:02 Period Temp Pulse Resp BP Sys/Hernandez Pulse Ox O2 Del Method O2 Flow Rate Last 24 Hr 98.2 F-98.5 F 27-97 9-36 120-180/45-131 86-100 BiPAP-Nasal Ca nnula 1-2 Intake and Output 04/19/22 04/20/22 04/20/22 19:59 03:59 11:59 Intake Total 129 317 Output Total 700 925 225 Balance -700 -796 92 Weight 140.614 kg Intake & Output: Intake & Output 04/19/22 04/20/22 04/20/22 19:59 03:59 11:59 Intake Total 129 317 Output Total 700 925 225 Balance -700 -796 92 Weight 140.614 kg Intake: IV 29 217 Sodium Chloride 0.9% 250 ml @ 217 20 mls/hr IV .[id number] [facility] Rx#: [id number] NITROGLYCERIN/D5W 25 mg In 250 29 ml @ 5 MCG/MIN 3 mls/hr IV . Q24H [facility] Rx#:[id number] Oral 100 100 Output: Urine Catheter Amount 700 925 225 Other: Urine Appearance Clear Clear Sediment Uretheral (Kirk) Clear Clear Urine Color Yellow Yellow Yellow Pale Uretheral (Kirk) Dark Yellow Yellow Urine Odor Normal Normal Exam: General: Awake, No acute Distress Eyes/N/T: EOMI, Head/Neck: neck supple, CV: Regular today, No murmurs, Pulm: Diminished b/l, mild Rales , no wheezing Abd: soft, nontender, +BS x4 Ext: no clubbing/cyanosis, b/l LE 3+ edema and anasarca Neuro: Alert now after being on the BiPAP, no focal deficits, moves all extremities, Skin: warm/dry OBJ DATA Labs CBC & Chem 7: 04/20/22 05:51 04/20/22 05:51 Labs: Abnormal Lab Results 04/20/22 04/20/22 04/19/22 05:51 05:51 21:18 RBC 2.98 L Hgb 9.5 L Hct 32.7 L POC Hct MCV 109.7 H MCHC 29.1 L RDW 16.8 H Immature Gran % (Auto) 0.9 H Neut % (Auto) 79.7 H Lymph % (Auto) 6.1 L Lymph # (Auto) 0.41 L Immature Gran # 0.06 H ABG Methemoglobin 0.2 L VBG pH 7.31 L POC VBG pH VBG pCO2 38.3 L POC VBG pCO2 at Temp VBG pO2 140.2 H VBG HCO3 18.7 L POC VBG HCO3 VBG Total CO2 19.9 L POC VBG Total CO2 VBG O2 Saturation 90.0 H VBG Base Excess -7 L POC VBG Base Excess Carboxyhemoglobin 8.5 H Total Hemoglobin 10.8 L Potassium POC Chloride Chloride 111 H Carbon Dioxide 18 L POC Total CO2 POC BUN BUN 64 H Creatinine 4.1 H POC Creatinine Glucose Uric Acid 8.5 H Calcium 8.3 L Phosphorus 6.2 H* Alkaline Phosphatase 123 H Lactate Dehydrogenase NT-Pro-B Natriuret Pep POC Troponin I 04/19/22 04/19/22 04/19/22 06:55 06:55 06:53 RBC Hgb Hct POC Hct MCV MCHC RDW Immature Gran % (Auto) Neut % (Auto) Lymph % (Auto) Lymph # (Auto) Immature Gran # ABG Methemoglobin VBG pH POC VBG pH 7.17 L* VBG pCO2 POC VBG pCO2 at Temp 58.6 H VBG pO2 VBG HCO3 POC VBG HCO3 21.3 L VBG Total CO2 POC VBG Total CO2 23.0 L VBG O2 Saturation VBG Base Excess POC VBG Base Excess -7.0 L Carboxyhemoglobin Total Hemoglobin Potassium 5.3 H POC Chloride Chloride 110 H Carbon Dioxide 18 L POC Total CO2 POC BUN BUN 61 H Creatinine 4.2 H POC Creatinine Glucose 108 H Uric Acid 8.6 H Calcium Phosphorus 5.5 H Alkaline Phosphatase Lactate Dehydrogenase 238 H NT-Pro-B Natriuret Pep POC Troponin I 0.21 H 04/19/22 04/19/22 04/19/22 04:36 04:35 04:19 RBC 3.01 L Hgb 9.5 L Hct 31.8 L POC Hct MCV 105.6 H MCHC 29.9 L RDW 17.0 H Immature Gran % (Auto) 0.8 H Neut % (Auto) Lymph % (Auto) 14.5 L Lymph # (Auto) 0.96 L Immature Gran # ABG Methemoglobin VBG pH POC VBG pH VBG pCO2 POC VBG pCO2 at Temp VBG pO2 VBG HCO3 POC VBG HCO3 VBG Total CO2 POC VBG Total CO2 VBG O2 Saturation VBG Base Excess POC VBG Base Excess Carboxyhemoglobin Total Hemoglobin Potassium POC Chloride Chloride Carbon Dioxide POC Total CO2 POC BUN BUN Creatinine POC Creatinine Glucose Uric Acid Calcium Phosphorus Alkaline Phosphatase Lactate Dehydrogenase NT-Pro-B Natriuret Pep 19816.0 H POC Troponin I 0.18 H 04/19/22 04/19/22 04:16 04:16 RBC Hgb Hct POC Hct 29.0 L MCV MCHC RDW Immature Gran % (Auto) Neut % (Auto) Lymph % (Auto) Lymph # (Auto) Immature Gran # ABG Methemoglobin VBG pH POC VBG pH 7.23 L VBG pCO2 POC VBG pCO2 at Temp VBG pO2 VBG HCO3 POC VBG HCO3 19.2 L VBG Total CO2 POC VBG Total CO2 21.0 L VBG O2 Saturation VBG Base Excess POC VBG Base Excess -8.0 L Carboxyhemoglobin Total Hemoglobin Potassium POC Chloride 114 H Chloride Carbon Dioxide POC Total CO2 20.0 L POC BUN 63 H BUN Creatinine POC Creatinine 4.8 H Glucose Uric Acid Calcium Phosphorus Alkaline Phosphatase Lactate Dehydrogenase NT-Pro-B Natriuret Pep POC Troponin I Meds: Medications Acetaminophen (Acetaminophen 325 Mg Tablet) 650 mg PO Q6HP PRN; Protocol PRN Reason: Per Pain Protocol/Fever > 101 Last Admin: 04/20/22 01:50 Dose: 650 mg Albuterol/Ipratropium (Ipratropium/Albuterol 3 Ml Ampul.Neb) 3 ml NEB Q4HP PRN PRN Reason: Shortness Of Breath Aspirin (Aspirin 81 Mg Tab.Chew) 81 mg PO DAILY [facility] Atorvastatin Calcium (Atorvastatin 20 Mg Tablet) 20 mg PO HS [facility] Last Admin: 04/19/22 21:44 Dose: 20 mg Docusate Sodium (Docusate Sodium 100 Mg Capsule) 100 mg PO BID [facility] Last Admin: 04/19/22 21:44 Dose: 100 mg Famotidine (Famotidine/Pf 20 Mg/2 Ml Vial) 20 mg IV HS [facility] Last Admin: 04/19/22 21:44 Dose: 20 mg Nitroglycerin/Dextrose (Nitroglycerin/D5w) 25 mg in 250 mls @ 3 mls/hr IV .Q24H [facility]; Protocol Last Titration: 04/20/22 02:08 Dose: 0 mcg/min, 0 mls/hr Sodium Chloride (Sodium Chloride 0.9%) 250 mls @ 20 mls/hr IV .[id number] [facility] Last Infusion: 04/20/22 05:05 Dose: 0 mls/hr Potassium Chloride 40 meq/ (Dextrose) 520 mls @ 130 mls/hr IV UD PRN PRN Reason: Potassium < 3 Magnesium Sulfate (Magnesium Sulfate) 2 gm in 50 mls @ 50 mls/hr IV UD PRN PRN Reason: Magnesium </= 1.6 Labetalol HCl (Labetalol 5 Mg/Ml Ml) 0 mg IV Q2HP PRN PRN Reason: Hypertension Last Admin: 04/20/22 08:05 Dose: 5 mg Metoprolol Tartrate (Metoprolol Tartrate 5 Mg/5 Ml Vial) 5 mg IV Q2HP PRN PRN Reason: Tachyarrhythmias HR>110 Ondansetron HCl (Ondansetron 4 Mg/2 Ml Vial) 4 mg IV Q4HP PRN PRN Reason: Nausea And Vomiting Polyethylene Glycol (Polyethylene Glycol 3350 17 Gm Packet) 17 gm PO DAILYP PRN PRN Reason: Constipation Potassium Chloride (Potassium Chloride 20 Meq Tablet) 40 meq PO UD PRN PRN Reason: Potssium is 3-3.5 Potassium Chloride (Potassium Chloride 20 Meq Tablet) 40 meq PO UD PRN PRN Reason: Potassium < 3 Rivaroxaban (Rivaroxaban 15 Mg Tablet) 15 mg PO 1600 [facility] Last Admin: 04/19/22 17:05 Dose: 15 mg Senna (Sennosides 1 Tablet) 2 tab PO DAILYP PRN PRN Reason: Constipation Sodium Chloride (0.9 % Sodium Chloride 10 Ml Syringe) 10 ml IV Q8 [facility] Last Admin: 04/20/22 05:07 Dose: 10 ml ABG Interpretation ABG results: 04/19/22 21:18 ABG Methemoglobin 0.2 L VBG pH 7.31 L VBG pCO2 38.3 L VBG pO2 140.2 H VBG HCO3 18.7 L VBG Total CO2 19.9 L VBG O2 Saturation 90.0 H VBG Base Excess -7 L A/P Narrative A/P Narrative: A: *Acute on chronic diastolic CHF w/pulmonary edema and mild RV systolic dysfxn: 2/2 pt stopping his home meds -On BB/ARB/bumex at home -mediocre uop response to diuresis -echo EF borderline reduced, diastolic dysfxn, *Acute hypoxic/hypercapnic respiratory failure w/respiratory acisosis: -on bipap yesterday and evening. this morning on 2L NC *JINA renal failure on CKD IV: Follows with Dr. Sesay, refuses dialysis -No change from yesterday *Anemia macrocytic, chronic: *COPD (not on home O2): *Paroxysmal AFib: On Xarelto/BB *HTN/HLD: On Norvasc/BB/ARB@home *Demand ischemia: Patient does not want any cardiology intervention *Morbid obesity: BMI 51 *Hyperkalemia: Improved *Goals of care: No aggressive measures. Guarded prognosis * P: -bipap, f/u abg -bumex, -nitro off -monitor renal fxn, i/o, weights -cbc/chem f/u -cont home norvasc/BB, hold ARB for JINA -cont asa/statin -recommend hospice eval, family discussion -PT/OT -CM for placement -ppx: xaralto / H2 DNR/DNI Time Spent With Patient Time: Total time spent is greater than 50% in coordination of care (as documented) at patient's floor/unit and/or counseling patient: Critical Care Time: Yes Total Critical Care Time: 40
[2022-04-20] MEDS ORDERED: RIVAROXABAN 15 MG TABLET PO SCH (09:00)
[2022-04-20] MEDS ORDERED: CALCITRIOL 0.5 MCG CAPSULE PO SCH (09:00)
[2022-04-20] MEDS: TAMSULOSIN 0.4 MG CAPSULE PO SCH ×2 (10:32→11:40)
[2022-04-20] MEDS: DOCUSATE SODIUM 100 MG CAPSULE PO SCH (10:32)
[2022-04-20] MEDS: amLODIPine 10 MG TABLET PO SCH ×2 (10:32→11:40)
[2022-04-20] MEDS: CALCIUM CARBONATE 500 MG TAB.CHEW PO SCH ×2 (10:32→11:41)
[2022-04-20] MEDS: METOPROLOL SUCCINATE 50 MG TAB.XL.24H PO SCH ×2 (10:32→11:40)
[2022-04-20] MEDS: ASPIRIN 81 MG TAB.CHEW PO SCH ×2 (10:32→11:40)
[2022-04-20] MEDS: CALCITRIOL 0.25 MCG CAPSULE PO SCH ×2 (10:33→11:40)
[2022-04-20] MEDS ORDERED: ONDANSETRON 4 MG ODT TABLET SL PRN (12:05)
[2022-04-20] MEDS ORDERED: morphine 4 MG/ML VIAL IV PRN (12:05)
[2022-04-20] MEDS ORDERED: LACTOPEROXI/GLUC OXID/POT THIO 1 EACH GEL..EA. TOPICAL PRN (12:05)
[2022-04-20] MEDS ORDERED: morphine 4 MG/ML VIAL NEB PRN (12:05)
[2022-04-20] MEDS ORDERED: LORazepam 2 MG/ML VIAL IV PRN (12:05)
[2022-04-20] MEDS ORDERED: 0.9 % SODIUM CHLORIDE 10 ML SYRINGE IV SCH (14:00)
--- NOTE | 2022-04-20 17:39 | Death Note ---
Discharge Sum: Prov Provider Patient information: Note initiated : 04/20/22 at 5:36 pm Service Date, if different from initiated Date: [] Patient: Hunter Munoz a 86 y/o M admitted on 04/19/22 for shortness of breath. Chief Complaint: [] Primary care physician: Gallo Shields DO Consults: 04/19/22 Consult to Physician [CONS] Stat Comment: Consulting Provider: Arnaud Perla Reason For Exam: Physician to Consult Discharge Sum: Summary Date and Time Date of admission: 04/19/22 15:58 Date of : 04/20/22 Time of : 17:20 Summary Details: History of present illness: Mr. Munoz is a 86 year old M Presents to the ED for generalized weakness confusion shortness of breath. Cording to the patient and family he has been off his medication for at least 6 weeks because they thought his medications were killing him. He is retained much fluid but does not check his weight at home to determine how much she is gained. He has a history of at least stage IV chronic kidney disease and was on dialysis in the past but refuses to go back on. He did have an mildly elevated troponin which remained stable in the ED and patient said he would not want any cardiac intervention. He does have a history of paroxysmal atrial fibrillation. The son believes patient had a slight heart attack a few weeks ago when patient was complaining of some chest and arm pain that eventually resolved. Found a pulmonary edema and was hypoxic. He was acidotic and hypercapnic. His creatinine was which much worse than baseline. Patient denies cough but complains of shortness of breath. By EMS he was found to be 82% on room air. The cep COVID and RSV are negative in the ed. Is just started on IV Lasix in the ED. Given nitro by EMS. Also hypertensive in the ED. 04/20 Patient on BiPAP for a the evening. And then transition to nasal cannula. Did well through the night. However this morning around 8 he became unresponsive. ABG showing CO2 retention respiratory acidosis. BiPAP placed. Started to show improvement on the BiPAP. Mediocre response to diuresis. Renal function similar to yesterday no real improvement. Metabolic acidosis as well. Extremely guarded prognosis. Patient currently denies shortness of breath on the BiPAP. Per nursing notes last night patient expressed that he wanted to go home and . When I talked to him today about goals of care he was wondering why we are doing all this and I discussed with him comfort care status and thusly seem to want to transition to. COVID test came back positive as well. After talking with the patient about his goals of care and his wish for comfort care measures and having a family discussion with his and son who also state he is dependent significantly declining and have her urgency was ready to go in the past as well. We will transition to comfort care focus. pt with family at bedside at 1720. A: *Acute on chronic diastolic CHF w/pulmonary edema and mild RV systolic dysfxn: 2/2 pt stopping his home meds -echo EF borderline reduced, diastolic dysfxn, *Covid infection, possible pna: *Acute hypoxic/hypercapnic respiratory failure w/respiratory acidosis: Multifactorial, 2/2 above *JINA renal failure on CKD IV: Follows with Dr. Sesay, refuses dialysis *Anemia macrocytic, chronic: *COPD (not on home O2): *Paroxysmal AFib: On Xarelto/BB *HTN/HLD: On Norvasc/BB/ARB@home *Demand ischemia: Patient does not want any cardiology intervention *Morbid obesity: BMI 51 *Hyperkalemia: Improved Additional Data Attending physician: Arnaud Perla
[2022-04-20] MEDS ORDERED: DOCUSATE SODIUM 100 MG CAPSULE PO SCH (21:00)
[2022-04-20] MEDS ORDERED: ASPIRIN 81 MG TAB.CHEW PO SCH (21:00)
--- NOTE | 2022-04-23 08:49 | EKG ---
[facility] Test Date: 2022-04-19 Pat Name: Hunter Munoz Department: [facility] Room: 106 Gender: Male Behavioral Health Clinician: : [id number] Requested By: Medardo Coates Order Number: [id number] Reading MD: Gallo Mercado M.D. Measurements Intervals [place] Rate: 101 P: 5 GA: 186 QRS: -61 QRSD: 139 T: 34 QT: 364 QTc: 472 Interpretive Statements Sinus tachycardia Ventricular premature complex RBBB and LAFB Electronically Signed On 04-23-2022 8:49:33 PST by Gallo Mercado M.D. /store/[email or web address]/[id number]
== END 2022-04-20 18:35 | disposition expired | DRG 291 ==
LOC: ED 04:06 → ICU 15:58 → MEDSUR 04-20 12:51
PROVIDERS: ADMIT Internal Medicine; ATTEND Internal Medicine